=== PATIENT | male | born 1945 | race Caucasian/White ===

== ENCOUNTER → 2017-12-03 07:44 | Outpatient (REF) | payer MEDICARE, MEDICAID, SELFPAY ==
[2017-11-12 03:43] VITALS: BMI 34.4
[2017-12-03 08:29] LABS: Add Manual Diff / Slide Review NO; Basophils Percent Auto 0.4 % (0-2); Hematocrit 38.8 % (41-53); Lymphocytes Percent Auto 16.2 % (25-40); Mean Corpuscular HGB Conc 33.4 % (30-36); Mean Corpuscular Hemoglobin 29.3 PG (26-34); Mean Corpuscular Volume 87.6 fL (80-100); Monocytes Percent Auto 8.3 % (3-14); Neutrophils Absolute Auto 9100 /uL (3000-5900); Neutrophils Percent Auto 74.1 % (50-75); Platelet Count 236 X10^3/uL (150-400); Red Blood Cell Count 4.42 X10^6/uL (4.5-5.9); Red Cell Distribution Width 17.4 % (11.6-14.8); White Blood Cell Count 12.2 X10^3/uL (4.5-11.0)
[2017-12-03 08:40] LABS: BUN Creatinine Ratio 12.5 (6-22); Calcium 8.6 mg/dL (8.4-10.2); Estimated Glomerular Filt Rate > 60.0 mL/min (>60); Glucose 80 mg/dL (80-110); HEMOLYSIS < 15 (0-50); Potassium 3.6 mmol/L (3.4-5.1); Sodium 137 mmol/L (137-145)
[2017-12-03 11:25] LABS: Clostridium Difficile Tox PCR POSITIVE for C. diff
== END ==
LOC: LAB 07:44
PROVIDERS: PCP Internal Medicine; Visit Provider Internal Medicine
DX: R19.7 Diarrhea, unspecified (principal); R50.9 Fever, unspecified
CPT/HCPCS: 36415; 80048; 85025; 87493

== ENCOUNTER → 2017-12-05 14:23 | Outpatient (REF) | payer MEDICARE, MEDICAID, SELFPAY ==
[2017-11-12 03:43] VITALS: BMI 34.4
[2017-12-05 14:32] LABS: Add Manual Diff / Slide Review NO; Basophils Percent Auto 0.9 % (0-2); Eosinophils Percent Auto 1.9 % (2-4); Hematocrit 38.3 % (41-53); Hemoglobin 13.2 g/dL (13.5-17.5); Lymphocytes Percent Auto 20.7 % (25-40); Mean Corpuscular HGB Conc 34.5 % (30-36); Mean Corpuscular Hemoglobin 29.9 PG (26-34); Mean Corpuscular Volume 86.5 fL (80-100); Monocytes Percent Auto 5.1 % (3-14); Neutrophils Absolute Auto 5900 /uL (3000-5900); Neutrophils Percent Auto 71.4 % (50-75); Platelet Count 237 X10^3/uL (150-400); Red Blood Cell Count 4.42 X10^6/uL (4.5-5.9); Red Cell Distribution Width 16.7 % (11.6-14.8); White Blood Cell Count 8.3 X10^3/uL (4.5-11.0)
== END ==
LOC: LAB 14:23
PROVIDERS: PCP Internal Medicine; Visit Provider Internal Medicine
DX: R50.9 Fever, unspecified (principal)
CPT/HCPCS: 85025

== ENCOUNTER → 2017-12-19 17:13 | Outpatient (REF) | payer MEDICARE, SELFPAY ==
[2017-11-12 03:43] VITALS: BMI 34.4
[2017-12-19 17:19] LABS: Add Manual Diff / Slide Review NO; Basophils Percent Auto 0.8 % (0-2); Eosinophils Percent Auto 2.3 % (2-4); Hematocrit 32.2 % (41-53); Hemoglobin 10.7 g/dL (13.5-17.5); Lymphocytes Percent Auto 28.3 % (25-40); Mean Corpuscular HGB Conc 33.2 % (30-36); Mean Corpuscular Hemoglobin 29.6 PG (26-34); Monocytes Percent Auto 9.2 % (3-14); Neutrophils Absolute Auto 4600 /uL (3000-5900); Neutrophils Percent Auto 59.4 % (50-75); Platelet Count 287 X10^3/uL (150-400); Red Blood Cell Count 3.62 X10^6/uL (4.5-5.9); Red Cell Distribution Width 17.4 % (11.6-14.8); White Blood Cell Count 7.7 X10^3/uL (4.5-11.0)
[2017-12-19 17:33] LABS: Alanine Aminotransferase 27 IU/L (21-72); Albumin 2.7 g/dL (3.5-5.0); Albumin Globulin Ratio 0.9 (1.0-2.8); Alkaline Phosphatase 75 U/L (38-126); Aspartate Aminotransferase 25 IU/L (17-59); BUN Creatinine Ratio 11.4 (6-22); Bilirubin Total 0.5 mg/dL (0.2-1.3); Blood Urea Nitrogen 8 mg/dL (9-20); Calcium 8.4 mg/dL (8.4-10.2); Carbon Dioxide 31 mmol/L (22-32); Chloride 99 mmol/L (98-107); Estimated Glomerular Filt Rate > 60.0 mL/min (>60); Globulin 2.9 g/dL (1.7-4.1); Glucose 85 mg/dL (80-110); HEMOLYSIS 15 (0-50); Potassium 3.5 mmol/L (3.4-5.1); Sodium 136 mmol/L (137-145); Total Protein 5.6 g/dL (6.3-8.2)
== END ==
LOC: LAB 17:13
PROVIDERS: PCP Internal Medicine; Visit Provider Internal Medicine
DX: D64.9 Anemia, unspecified (principal)
CPT/HCPCS: 80053; 85025

== ENCOUNTER → 2017-12-20 07:51 | Outpatient (REF) | payer SELFPAY ==
[2017-11-12 03:43] VITALS: BMI 34.4
[2017-12-20 08:24] LABS: Add Manual Diff / Slide Review NO; Basophils Percent Auto 0.7 % (0-2); Eosinophils Percent Auto 3.1 % (2-4); Hematocrit 31.1 % (41-53); Hemoglobin 10.4 g/dL (13.5-17.5); Lymphocytes Percent Auto 33.7 % (25-40); Mean Corpuscular HGB Conc 33.5 % (30-36); Mean Corpuscular Hemoglobin 29.7 PG (26-34); Mean Corpuscular Volume 88.6 fL (80-100); Monocytes Percent Auto 8.3 % (3-14); Neutrophils Absolute Auto 3300 /uL (3000-5900); Neutrophils Percent Auto 54.2 % (50-75); Platelet Count 282 X10^3/uL (150-400); Red Blood Cell Count 3.51 X10^6/uL (4.5-5.9); White Blood Cell Count 6.1 X10^3/uL (4.5-11.0)
[2017-12-20 08:34] LABS: BUN Creatinine Ratio 11.4 (6-22); Blood Urea Nitrogen 8 mg/dL (9-20); Calcium 8.6 mg/dL (8.4-10.2); Carbon Dioxide 35 mmol/L (22-32); Chloride 99 mmol/L (98-107); Estimated Glomerular Filt Rate > 60.0 mL/min (>60); Glucose 89 mg/dL (80-110); HEMOLYSIS < 15 (0-50); Potassium 3.7 mmol/L (3.4-5.1); Sodium 139 mmol/L (137-145)
[2017-12-20 08:42] LABS: Digoxin 1.7 ng/mL (0.8-2.0)
== END ==
LOC: LAB 07:51
PROVIDERS: PCP Internal Medicine; Visit Provider Internal Medicine
DX: S37.009A Unspecified injury of unspecified kidney, initial encounter (principal); D64.9 Anemia, unspecified
CPT/HCPCS: 36415; 80048; 80162; 85025; 93971

== ENCOUNTER → 2017-12-20 15:08 | Outpatient (CLI) | payer SELFPAY ==
[2017-11-12 03:43] VITALS: BMI 34.4
--- NOTE | 2017-12-20 | DI.US.S_ITS ---
PROCEDURE: US PERIPH VENOUS LOW EXTREM RT INDICATIONS: Right lower extremity numbness TECHNIQUE: Real-time imaging, as well as color and pulse Doppler interrogation, were performed of the lower extremity deep veins from the inguinal ligament to the popliteal fossa. COMPARISON: None. FINDINGS: The deep veins are normally compressible, and free of intraluminal thrombus. Color and pulse Doppler demonstrate normal phasic intraluminal flow. There is normal augmentation response to distal compression maneuver. IMPRESSION: No deep venous thrombosis identified within the right lower extremity. Dictated by: Victoriano Presley [facility] Interpreted: Kal Rae MD on 12/20/2017 at 16:00 Approved by: Kal Rae M.D. on 12/20/2017 at 16:48
== END ==
PROVIDERS: PCP Internal Medicine; Visit Provider Internal Medicine
DX: R20.0 Anesthesia of skin (principal)
CPT/HCPCS: 36415; 80048; 80162; 85025; 93971

== ENCOUNTER → 2017-12-22 07:50 | Outpatient (REF) | payer SELFPAY ==
[2017-11-12 03:43] VITALS: BMI 34.4
[2017-12-22 09:02] LABS: Thyroid Stimulating Hormone 7.06 uIU/mL (0.47-4.68)
[2017-12-22 15:41] LABS: Free T3, Triiodothyronine Free 3.02 pg/mL (2.77-5.27); Free T4, Direct Thyroxine 1.89 ng/dL (0.78-2.19)
== END ==
LOC: LAB 07:50
PROVIDERS: PCP Internal Medicine; Visit Provider Internal Medicine
DX: R41.0 Disorientation, unspecified (principal); Z79.899 Other long term (current) drug therapy; R94.6 Abnormal results of thyroid function studies
CPT/HCPCS: 36415; 84439; 84443; 84481

== ENCOUNTER → 2017-12-25 16:05 | Outpatient (REF) | payer MEDICARE, SELFPAY ==
[2017-11-12 03:43] VITALS: BMI 34.4
[2017-12-25 16:16] LABS: Color Urine UA RED
[2017-12-25 16:17] LABS: Appearance Urine UA OTHER
[2017-12-25 16:18] LABS: WBC Urine 5-10/HPF (0-5/HPF)
[2017-12-25 16:19] LABS: Amorphous Sediment Urine 1+; RBC Urine >100/HPF (0-5/HPF)
[2017-12-25 16:20] LABS: Bacteria Urine Moderate (10-30); Culture Indicated Urine Specimen Cultured
== END ==
LOC: LAB 16:05
PROVIDERS: PCP Internal Medicine; Visit Provider Internal Medicine
DX: R31.9 Hematuria, unspecified (principal); R68.83 Chills (without fever)
CPT/HCPCS: 81001; 87077; 87086; 87186

== ENCOUNTER → 2017-12-27 08:53 | Outpatient (REF) | payer MEDICARE, SELFPAY ==
[2017-11-12 03:43] VITALS: BMI 34.4
== END ==
LOC: LAB 08:53
PROVIDERS: PCP Internal Medicine; Visit Provider Internal Medicine
DX: I48.91 Unspecified atrial fibrillation (principal)
CPT/HCPCS: 36415; 80162

== ENCOUNTER → 2018-01-28 07:45 | Outpatient (REF) | payer MEDICARE, SELFPAY ==
[2017-11-12 03:43] VITALS: BMI 34.4
[2018-01-28 09:13] LABS: Chloride 103 mmol/L (98-107); HEMOLYSIS < 15 (0-50)
[2018-01-28 09:15] LABS: BUN Creatinine Ratio 14.3 (6-22); Blood Urea Nitrogen 10 mg/dL (9-20); Carbon Dioxide 35 mmol/L (22-32); Estimated Glomerular Filt Rate > 60.0 mL/min (>60); Glucose 73 mg/dL (80-110); Potassium 2.9 mmol/L (3.4-5.1); Sodium 140 mmol/L (137-145)
[2018-01-28 10:06] LABS: Digoxin 0.7 ng/mL (0.8-2.0)
== END ==
LOC: LAB 07:45
PROVIDERS: PCP Internal Medicine; Visit Provider Internal Medicine
DX: Z92.29 Personal history of other drug therapy (principal); D64.9 Anemia, unspecified; I50.9 Heart failure, unspecified
CPT/HCPCS: 36415; 80048; 80162

== ENCOUNTER → 2018-01-31 07:55 | Outpatient (REF) | payer MEDICARE, SELFPAY ==
[2017-11-12 03:43] VITALS: BMI 34.4
[2018-01-31 09:11] LABS: Digoxin 0.7 ng/mL (0.8-2.0)
== END ==
LOC: LAB 07:55
PROVIDERS: PCP Internal Medicine; Visit Provider Internal Medicine
DX: T46.0X5A Adverse effect of cardiac-stimulant glycosides and drugs of similar action, initial encounter (principal)
CPT/HCPCS: 36415; 80162

== ENCOUNTER → 2018-02-02 08:23 | Outpatient (REF) | payer MEDICARE, SELFPAY ==
[2017-11-12 03:43] VITALS: BMI 34.4
[2018-02-02 10:33] LABS: BUN Creatinine Ratio 17.1 (6-22); Blood Urea Nitrogen 12 mg/dL (9-20); Calcium 8.1 mg/dL (8.4-10.2); Carbon Dioxide 34 mmol/L (22-32); Chloride 101 mmol/L (98-107); Estimated Glomerular Filt Rate > 60.0 mL/min (>60); Glucose 67 mg/dL (80-110); HEMOLYSIS < 15 (0-50); Potassium 3.3 mmol/L (3.4-5.1); Sodium 139 mmol/L (137-145)
[2018-02-02 10:34] LABS: Digoxin 0.9 ng/mL (0.8-2.0)
== END ==
LOC: LAB 08:23
PROVIDERS: PCP Internal Medicine; Visit Provider Internal Medicine
DX: I10 Essential (primary) hypertension (principal)
CPT/HCPCS: 36415; 80048; 80162

== ENCOUNTER 2018-02-07 20:11 | Inpatient (IN) | payer MEDICARE, MEDICAID, SELFPAY ==
[2017-11-12 03:43] VITALS: BMI 34.4
[2018-02-07] VITALS (8 sets, daily range): BP systolic 90–170; BP diastolic 45–144; PULSE 91–139; RESP 18–30; TEMP 36.4–39.1; O2SAT 91–100; BMI 32.8
--- NOTE | 2018-02-07 20:19 | ED.ABDPAIN ---
HPI - Abdominal Pain General Chief Complaint: Abdominal Pain Stated Complaint: ABD Pain Time Seen by Provider: 02/07/18 20:17 Source: patient and family Mode of arrival: EMS Limitations: no limitations History of Present Illness HPI narrative: Patient is a 72-year-old male presenting with shaking and abdominal pain. He says he can't get cold. He has extremely poor historian is having some epigastric pain. No vomiting or diarrhea. According to his daughter in law he has had multiple hospitalizations over the last 6 months or so. It started with a septic right knee at which time he also experienced a non ST elevated NV. He later had 3 stents placed at the [facility] and transferred to [facility] rehab. He was admitted in November 2017 at this hospital with C diff colitis. He denies any chest pain or shortness of breath. He is visibly shaking and appears cold. Related Data Home Medications Medication Instructions Recorded Confirmed acetaminophen 650 mg PO Q4H PRN 11/12/17 11/12/17 albuterol sulfate 2 ml INHALATION Q4H PRN 11/12/17 02/08/18 amiodarone 200 mg PO DAILY 11/12/17 02/08/18 atorvastatin 40 mg PO DAILY 11/12/17 11/12/17 bisacodyl 5 mg PO BEDTIME PRN 11/12/17 11/12/17 clopidogrel 75 mg PO DAILY 11/12/17 02/08/18 gabapentin 100 mg PO TID 11/12/17 11/12/17 mirtazapine 7.5 mg PO BEDTIME 11/12/17 11/12/17 pantoprazole 40 mg PO QAM 11/12/17 11/12/17 rivaroxaban [Xarelto] 15 mg PO QPM 11/12/17 02/08/18 salmeterol [Serevent Diskus] 1 inh INHALATION Q12H 11/12/17 11/12/17 Digox 0.125 mg PO DAILY 02/08/18 02/08/18 docusate sodium 100 mg PO BID 02/08/18 02/08/18 furosemide 60 mg PO DAILY 02/08/18 02/08/18 potassium chloride 10 meq PO BID 02/08/18 02/08/18 Previous Rx's Medication Instructions Recorded metoprolol tartrate 12.5 mg PO BID #60 tab 11/13/17 oxycodone-acetaminophen [Percocet] 1 tab PO Q4-6H PRN #30 tab 11/13/17 Allergies Allergy/AdvReac Type Severity Reaction Status Date / Time hydrochlorothiazide Allergy Unknown Verified 02/07/18 20:22 [HYDROCHLOROTHIAZIDE] pregabalin [From LYRICA] Allergy Unknown Verified 02/07/18 20:22 Pkoeofp-Xgn-Hok Reductase Allergy Unknown Verified 02/07/18 20:22 Inhibitor [[id number] REDUCTASE INHIBITOR] Sulfa (Sulfonamide Allergy Unknown Verified 02/07/18 20:22 Antibiotics) [SULFA (SULFONAMIDE ANTIBIOTICS)] Review of Systems Review of Systems All systems reviewed & are unremarkable except as noted in HPI and below Constitutional Reports body ache(s), Reports chills, Denies fatigue, Denies fever(s) and Denies headache(s) ENT Ears, Nose, Mouth, and Throat: Denies dizziness, Denies headache(s) and Denies neck pain Cardiovascular Denies chest pain, Denies diaphoresis, Reports syncope (previous history, supposed to get zero patch. No syncope recently), Denies pedal edema, Denies lightheadedness, Denies palpitations (tachycardic on monitor), Reports dyspnea and Denies dyspnea on exertion Respiratory Denies cough, Reports dyspnea and Denies dyspnea on exertion Gastrointestinal Gastrointestinal: Reports as per HPI, Denies abdominal pain, Denies diarrhea, Denies nausea and Denies vomiting Genitourinary Denies urinary frequency and Denies urinary incontinence Musculoskeletal Denies back pain, Denies arthralgias, Denies joint swelling, Denies neck pain and Denies numbness Integumentary/Breasts Denies pruritus, Denies erythema, Denies rash and Denies wounds Neurologic Reports confusion, Denies dizziness, Reports syncope (previous history, supposed to get zero patch. No syncope recently), Denies headache(s), Denies numbness and Denies restless legs Psychiatric Reports confusion Endocrine Denies fatigue and Denies palpitations (tachycardic on monitor) [facility] Medical History Anemia (Chronic) Anorexia (Chronic) Atherosclerosis (Chronic) Benign prostatic hyperplasia without lower urinary tract symptoms (Chronic) COPD (chronic obstructive pulmonary disease) (Chronic) Hypertensive heart disease with heart failure (Chronic) Major depressive disorder, single episode (Chronic) Morbid obesity due to excess calories (Chronic) Obstructive sleep apnea (Chronic) Orthostatic hypotension (Chronic) Osteoarthritis (Chronic) Paroxysmal atrial fibrillation (Chronic) Polyneuropathy, unspecified (Chronic) 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) Infection/inflammation due to internal orthopedic device/implant/graft (Resolved) Non-ST elevated myocardial infarction (non-STEMI) (Resolved) Streptococcus, group b, as the cause of diseases classified elsewhere (Resolved) Surgical History Presence of coronary angioplasty implant and graft (Chronic) Social History household members: none lives independently: No housing: senior care Exam Initial Vital Signs Initial Vital Signs: Vital Signs Temperature 97.5 F L 02/07/18 20:19 Pulse Rate 91 H 02/07/18 20:19 Respiratory Rate 18 02/07/18 20:19 Blood Pressure 106/65 02/07/18 20:19 Pulse Oximetry 100 02/07/18 20:19 Const General: cooperative Nutritional Appearance: obese Orientation: alert and awake HENMT Head: normal to inspection and normocephalic Eyes General: appearance normal, both eyes and all related structures Pupils: PERRL EOM: EOM intact bilaterally Neck Neck: normal visual inspection, full ROM and no meningeal signs Chest Chest: normal inspection of the chest Resp Effort & Inspection: normal respiratory effort, able to speak in complete sentences and no use of accessory muscles Auscultation: clear to auscultation bilaterally, no rales, no rhonchi and no wheezes Cardio Rate: tachycardic Rhythm: regular rhythm Heart Sounds: S1 normal and S2 normal GI Palpation: soft and tender (Mild tenderness in epigastric and umbilical region without guarding or rebound) General: No CVA tenderness Penis: normal penis Meatus: meatus normal Back/Spine/Pelvis Back: normal to inspection, No back tenderness and No erythema Cervical Spine: normal cervical lordosis Thoracic/Lumbar Spine: thoracic and lumbar spine normal to inspection Skin General: no rashes or lesions noted, No ecchymosis, No erythema and No mottling Neuro General: alert and awake Cranial Nerves: CN's II-XI intact bilaterally Speech: speech normal Extrem General: normal to inspection and No no pedal edema Right upper extremity: normal to inspection Left upper extremity: normal to inspection Right lower extremity: knee (Scar noted) Details: no swelling, no abrasions, no ecchymosis and no deformity Course Orders Ordered: ED Orders 02/07/18 20:20 CT abdomen pelvis w con Stat 02/07/18 20:21 EKG-12 Lead Stat 02/07/18 21:11 Complete Blood Count AUTO DIFF Stat Comprehensive Metabolic Panel Stat Lipase Stat Partial Thromboplastin Time Stat Prothrombin Time INR Stat Troponin & CK Cardiac Panel Stat 02/07/18 21:24 Lactate (Lactic Acid) Stat 02/07/18 22:36 XR chest 1V Stat 02/07/18 22:40 US periph venous low extrem bi Stat 02/07/18 23:06 Blood Culture Stat 02/08/18 01:27 Lactate 4HR (Lactic Acid Rflx) Stat 02/08/18 03:39 Consult to Physician Routine Acetaminophen (Tylenol) 650 mg PO Q6HR PRN PRN Reason: As Needed for Fever/Mild Pain Sodium Chloride (Normal Saline 0.9%) 1,000 mls @ 125 mls/hr IV CONT CLEMENTINA Ondansetron HCl (Zofran) 4 mg IV Q4HR PRN PRN Reason: Nausea And Vomiting Discontinued Medications Acetaminophen (Tylenol) 650 mg PO NOW ONE Stop: 02/07/18 22:58 Last Admin: 02/07/18 23:14 Dose: 650 mg Sodium Chloride (Normal Saline 0.9%) 1,000 mls @ 150 mls/hr IV CONT CLEMENTINA Last Infusion: 02/07/18 23:19 Dose: 0 mls/hr Infusion: 02/07/18 23:14 Dose: 1,000 mls/hr Admin: 02/07/18 20:46 Dose: 150 mls/hr Vancomycin HCl 1,500 mg/ (Sodium Chloride) 500 mls @ 333.333 mls/hr IV NOW ONE Stop: 02/07/18 23:48 Last Infusion: 02/08/18 02:56 Dose: 0 mls/hr Admin: 02/08/18 00:51 Dose: 333.333 mls/hr Piperacillin/Tazobactam/Dextrose (Zosyn) 3.375 gm in 50 mls @ 100 mls/hr IV NOW ONE Stop: 02/08/18 00:16 Last Infusion: 02/08/18 00:41 Dose: 0 mls/hr Admin: 02/08/18 00:07 Dose: 100 mls/hr Sodium Chloride (Normal Saline 0.9%) 1,000 mls @ 1,000 mls/hr IV BOLUS ONE Stop: 02/08/18 01:03 Last Infusion: 02/08/18 03:26 Dose: 0 mls/hr Admin: 02/08/18 00:07 Dose: 1,000 mls/hr Sodium Chloride (Normal Saline 0.9%) 1,000 mls @ 1,000 mls/hr IV BOLUS ONE Stop: 02/08/18 01:20 Last Infusion: 02/08/18 03:26 Dose: 0 mls/hr Admin: 02/08/18 01:35 Dose: 1,000 mls/hr Ketorolac Tromethamine (Toradol) 15 mg IV NOW ONE Stop: 02/08/18 01:54 Last Admin: 02/08/18 01:59 Dose: 15 mg Morphine Sulfate (Morphine) 2 mg IV NOW ONE Stop: 02/07/18 20:46 Last Admin: 02/07/18 20:46 Dose: 2 mg Ondansetron HCl (Zofran) 4 mg IV NOW ONE Stop: 02/07/18 20:25 Last Admin: 02/07/18 20:46 Dose: 4 mg Pantoprazole Sodium (Protonix) 40 mg IV NOW ONE Stop: 02/07/18 20:25 Last Admin: 02/07/18 20:46 Dose: 40 mg Vital Signs - 8 hr 02/07/18 20:19 02/07/18 20:58 02/07/18 21:23 Temperature 97.5 F L Pulse Rate 91 H 114 H 118 H Respiratory Rate 18 23 25 H Blood Pressure 106/65 Blood Pressure [Left Arm] 113/85 H 126/85 H Pulse Oximetry 100 96 96 02/07/18 22:46 02/07/18 22:51 02/07/18 23:14 Temperature 102.4 F H 102.4 F H Pulse Rate 139 H 131 H Respiratory Rate 21 30 H Blood Pressure Blood Pressure [Left Arm] 147/60 H 170/144 H Pulse Oximetry 96 91 02/07/18 23:27 02/07/18 23:45 02/08/18 00:12 Temperature 100.2 F H Pulse Rate 126 H 125 H Respiratory Rate 28 H 25 H Blood Pressure Blood Pressure [Left Arm] 107/45 L 90/52 L Pulse Oximetry 96 94 02/08/18 00:16 02/08/18 01:38 02/08/18 01:59 Temperature 100.2 F H 101.8 F H 101.8 F H Pulse Rate 105 H Respiratory Rate 24 Blood Pressure Blood Pressure [Left Arm] 81/46 L Pulse Oximetry 93 02/08/18 02:01 02/08/18 02:22 02/08/18 02:58 Temperature 99.1 F Pulse Rate 104 H 106 H 101 H Respiratory Rate 25 H 22 20 Blood Pressure Blood Pressure [Left Arm] 86/50 L 100/53 L 96/64 Pulse Oximetry 93 96 98 02/08/18 03:26 Temperature 99.1 F Pulse Rate Respiratory Rate Blood Pressure Blood Pressure [Left Arm] Pulse Oximetry MDM - Abdominal Pain Medical Records Attestation: I reviewed the patient's medical records. Lab Data Attestation: I reviewed the patient's lab results. Result diagrams: 02/07/18 21:11 02/07/18 21:11 Lab Results 02/07/18 02/07/18 02/07/18 Range/Units 21:11 21:11 21:11 WBC 8.0 (4.5-11.0) X10^3/uL RBC 4.56 (4.5-5.9) X10^6/uL Hgb 13.6 (13.5-17.5) g/dL Hct 41.2 (41-53) % MCV 90.3 (80-100) fL MCH 29.8 (26-34) PG MCHC 33.0 (30-36) % RDW 15.6 H (11.6-14.8) % Plt Count 235 (150-400) X10^3/uL Neut % (Auto) 85.4 H (50-75) % Lymph % (Auto) 12.2 L (25-40) % [place] % (Auto) 1.4 L (3-14) % Eos % (Auto) 0.5 L (2-4) % Baso % (Auto) 0.5 (0-2) % Neut # (Auto) 6800 H (3498-1898) /uL PT 18.5 H (10.1-12.7) SECONDS INR 1.7 H (0.9-1.3) APTT 34 (26.4-36.2) SECONDS Sodium 142 (137-145) mmol/L Potassium 4.7 D (3.4-5.1) mmol/L Chloride 102 (98-107) mmol/L Carbon Dioxide 34 H (22-32) mmol/L BUN 15 (9-20) mg/dL Creatinine 1.00 (0.66-1.25) mg/dL Estimated GFR > 60.0 (>60) mL/min BUN/Creatinine Ratio 15.0 (6-22) Glucose 98 (80-110) mg/dL Lactate (0.7-2.1) mmol/L Calcium 9.0 (8.4-10.2) mg/dL Total Bilirubin 1.4 H (0.2-1.3) mg/dL AST 225 H (17-59) IU/L ALT 75 H (21-72) IU/L Alkaline Phosphatase 225 H (38-126) U/L Total Creatine Kinase 31 L (55-170) U/L CK-MB (CK-2) TNP Troponin I < 0.012 (0.01-0.034) ng/mL Total Protein 6.5 (6.3-8.2) g/dL Albumin 3.2 L (3.5-5.0) g/dL Globulin 3.3 (1.7-4.1) g/dL Albumin/Globulin Ratio 1.0 (1.0-2.8) Lipase 125 (23-300) U/L 02/07/18 02/08/18 Range/Units 21:24 01:27 WBC (4.5-11.0) X10^3/uL RBC (4.5-5.9) X10^6/uL Hgb (13.5-17.5) g/dL Hct (41-53) % MCV (80-100) fL MCH (26-34) PG MCHC (30-36) % RDW (11.6-14.8) % Plt Count (150-400) X10^3/uL Neut % (Auto) (50-75) % Lymph % (Auto) (25-40) % [place] % (Auto) (3-14) % Eos % (Auto) (2-4) % Baso % (Auto) (0-2) % Neut # (Auto) (7153-9161) /uL PT (10.1-12.7) SECONDS INR (0.9-1.3) APTT (26.4-36.2) SECONDS Sodium (137-145) mmol/L Potassium (3.4-5.1) mmol/L Chloride (98-107) mmol/L Carbon Dioxide (22-32) mmol/L BUN (9-20) mg/dL Creatinine (0.66-1.25) mg/dL Estimated GFR (>60) mL/min BUN/Creatinine Ratio (6-22) Glucose (80-110) mg/dL Lactate 2.9 H 1.9 (0.7-2.1) mmol/L Calcium (8.4-10.2) mg/dL Total Bilirubin (0.2-1.3) mg/dL AST (17-59) IU/L ALT (21-72) IU/L Alkaline Phosphatase (38-126) U/L Total Creatine Kinase (55-170) U/L CK-MB (CK-2) Troponin I (0.01-0.034) ng/mL Total Protein (6.3-8.2) g/dL Albumin (3.5-5.0) g/dL Globulin (1.7-4.1) g/dL Albumin/Globulin Ratio (1.0-2.8) Lipase (23-300) U/L Point of care testing: Urine Dip Bedside Urine Glucose Negative Bedside Urine Bilirubin - Negative Bedside Urine Ketone - Negative Urine Specific [place] 1.015 Bedside Urine Occult Blood - Negative Bedside Urine pH 7.5 Bedside Urine Protein - Negative Bedside Urine Urobilinogen +/- 1mg Bedside Urine Nitrite - Negative Bedside Urine Leukocytes - Negative Esterase Imaging Data CT scan - abdomen: Radiologist's impression: PROCEDURE: CT ABDOMEN PELVIS W CON INDICATIONS: abdominal pain TECHNIQUE: After the administration of intravenous contrast, 5 mm thick sections acquired from the diaphragm to the symphysis. 5 mm coronal and sagittal reformats were acquired. For radiation dose reduction, the following was used: automated exposure control, adjustment of mA and/or kV according to patient size. COMPARISON: [facility], CT, CT CHEST ABDOMEN PELVIS WITH CONTRAST, 10/06/2017, 14:38. FINDINGS: Image quality: Excellent. ABDOMEN: Lung bases: Lung bases are clear. Heart size is normal. Solid organs: Liver demonstrates multiple low attenuation foci, unchanged. Gallbladder is unremarkable. Biliary system is non dilated. Pancreas enhances normally. Spleen is normal in size and enhancement. No adrenal nodules. Kidneys demonstrate normal size and enhancement, without hydronephrosis. Bilateral low attenuation renal foci are unchanged. Retroaortic left renal vein is noted. Peritoneum and bowel: Bowel loops demonstrate normal wall thickness and caliber. No free fluid or air. Appendix is unremarkable. Minimal diverticula are present without inflammatory change. Nodes and vessels: No retroperitoneal or mesenteric adenopathy by size criteria. Aorta and inferior vena cava are normal in size. Miscellaneous: No ventral hernias. PELVIS: Genitourinary: Bladder wall thickness is normal. There is a small focus of soft tissue density within the posterior inferior bladder becoming contiguous with an enlarged prostate gland, unchanged. Miscellaneous: No inguinal hernias or adenopathy. Bones: No suspicious bony lesions. No vertebral body compression fractures. IMPRESSION: 1. No acute intra-abdominal or pelvic process. 2. Hepatic and renal cysts. 3. Diverticulosis. Dictated by: Xochitl Moore M.D. on 02/07/2018 at 22:09 Approved by: Xochitl Moore M.D. on 02/07/2018 at 22:14 Venous US: Radiologist's impression: Bilateral venous Dopplers negative for DVT ECG Data Attestation: I personally reviewed and interpreted this ECG as follows: Prior ECG tracings: not available for review Interpretation: Sinus tachycardia heart rate 124 Q-wave noted in lead [address] [facility] Narrative Medical decision making narrative: The patient had initially with normal vitals all but began getting tachycardic and eventually fever was present. Elevated lactic acid at 2.9. Normal white count. No identification of the infection. Chest x-ray negative abdominal CT negative urine is negative. Full skin assessment does not show any bed sores or erythema. Bilateral Dopplers used to rule out any DVT. Patient is never hypoxic or visibly short of breath. I do not believe that he has a PE. His heart rate actually improved significantly with IV fluids and fever control. His mental status also improved. He is does not show any signs of congestive heart failure. Griffin catheter placed for monitoring fluid balance. Repeat lactic acid shows improvement however patient's blood pressure is labile is but he clinically has improved significantly. He is much more awake and alert. Heart rate is down to the low 100s. He overall seems better and is tolerating IV fluids. His at this time will continue with IV fluids I do not think vasopressors needed at this time. Dr. Vieira updated on patient's symptoms and test results. His agrees with ICU admission. Discharge Plan Departure Admit Date/Time: 02/08/18 02:03 Admit Provider: Freddy Vieira
--- NOTE | 2018-02-07 20:32 | PC.NURSE ---
lakeshia crook and this nurse witnessed pt say xochilt roth can be told anything about his medical. she manages his medical stuff
[2018-02-07] MEDS: SODIUM CHLORIDE 0.9% 1,000 ML 150 ML IV (20:46)
[2018-02-07] MEDS: MORPHINE 2 MG/ML INJ IV (20:46)
[2018-02-07] MEDS: PANTOPRAZOLE 40 MG VIAL IV (20:46)
[2018-02-07] MEDS: ONDANSETRON 4 MG/2 ML INJ IV (20:46)
--- NOTE | 2018-02-07 20:57 | PC.NURSE ---
pt reports abdominal pain starting at 5pm. tremmors started immediatley after pain started. pt had a sandwich for dinner then pain started.
[2018-02-07 21:33] LABS: Add Manual Diff / Slide Review NO; Basophils Percent Auto 0.5 % (0-2); Eosinophils Percent Auto 0.5 % (2-4); Hematocrit 41.2 % (41-53); Hemoglobin 13.6 g/dL (13.5-17.5); Lymphocytes Percent Auto 12.2 % (25-40); Mean Corpuscular Hemoglobin 29.8 PG (26-34); Mean Corpuscular Volume 90.3 fL (80-100); Monocytes Percent Auto 1.4 % (3-14); Neutrophils Absolute Auto 6800 /uL (3000-5900); Neutrophils Percent Auto 85.4 % (50-75); Platelet Count 235 X10^3/uL (150-400); Red Blood Cell Count 4.56 X10^6/uL (4.5-5.9); Red Cell Distribution Width 15.6 % (11.6-14.8)
[2018-02-07 21:38] LABS: INR 1.7 (0.9-1.3); Prothrombin Time 18.5 SECONDS (10.1-12.7)
[2018-02-07 21:41] LABS: PTT Partial Thromboplastin Tim 34 SECONDS (26.4-36.2)
[2018-02-07 21:43] LABS: Alanine Aminotransferase 75 IU/L (21-72); Albumin 3.2 g/dL (3.5-5.0); Alkaline Phosphatase 225 U/L (38-126); Aspartate Aminotransferase 225 IU/L (17-59); Bilirubin Total 1.4 mg/dL (0.2-1.3); Blood Urea Nitrogen 15 mg/dL (9-20); Carbon Dioxide 34 mmol/L (22-32); Chloride 102 mmol/L (98-107); Creatine Kinase 31 U/L (55-170); Estimated Glomerular Filt Rate > 60.0 mL/min (>60); Globulin 3.3 g/dL (1.7-4.1); Glucose 98 mg/dL (80-110); HEMOLYSIS < 15 (0-50); Lipase 125 U/L (23-300); Potassium 4.7 mmol/L (3.4-5.1); Sodium 142 mmol/L (137-145); Total Protein 6.5 g/dL (6.3-8.2)
[2018-02-07 21:57] LABS: Troponin I < 0.012 ng/mL (0.01-0.034)
--- NOTE | 2018-02-07 22:32 | ED_ITS ---
HPI - Abdominal Pain General Chief Complaint: Abdominal Pain Stated Complaint: ABD Pain Time Seen by Provider: 02/07/18 20:17 Source: patient and family Mode of arrival: EMS Limitations: no limitations History of Present Illness HPI narrative: Patient is a 72-year-old male presenting with shaking and abdominal pain. He says he can't get cold. He has extremely poor historian is having some epigastric pain. No vomiting or diarrhea. According to his daughter in law he has had multiple hospitalizations over the last 6 months or so. It started with a septic right knee at which time he also experienced a non ST elevated [place]. He later had [address] [facility] and transferred to [facility] rehab. He was admitted in November 2017 at this hospital with C diff colitis. He denies any chest pain or shortness of breath. He is visibly shaking and appears cold. Related Data Home Medications Medication Instructions Recorded Confirmed acetaminophen 650 mg PO Q4H PRN 11/12/17 11/12/17 albuterol sulfate 2 ml INHALATION Q4H PRN 11/12/17 02/08/18 amiodarone 200 mg PO DAILY 11/12/17 02/08/18 atorvastatin 40 mg PO DAILY 11/12/17 11/12/17 bisacodyl 5 mg PO BEDTIME PRN 11/12/17 11/12/17 clopidogrel 75 mg PO DAILY 11/12/17 02/08/18 gabapentin 100 mg PO TID 11/12/17 11/12/17 mirtazapine 7.5 mg PO BEDTIME 11/12/17 11/12/17 pantoprazole 40 mg PO QAM 11/12/17 11/12/17 rivaroxaban [Xarelto] 15 mg PO QPM 11/12/17 02/08/18 salmeterol [Serevent Diskus] 1 inh INHALATION Q12H 11/12/17 11/12/17 Digox 0.125 mg PO DAILY 02/08/18 02/08/18 docusate sodium 100 mg PO BID 02/08/18 02/08/18 furosemide 60 mg PO DAILY 02/08/18 02/08/18 potassium chloride 10 meq PO BID 02/08/18 02/08/18 Previous Rx's Medication Instructions Recorded metoprolol tartrate 12.5 mg PO BID #60 tab 11/13/17 oxycodone-acetaminophen [Percocet] 1 tab PO Q4-6H PRN #30 tab 11/13/17 Allergies Allergy/AdvReac Type Severity Reaction Status Date / Time hydrochlorothiazide Allergy Unknown Verified 02/07/18 20:22 [HYDROCHLOROTHIAZIDE] pregabalin [From LYRICA] Allergy Unknown Verified 02/07/18 20:22 Lockprt-Jex-Sez Reductase Allergy Unknown Verified 02/07/18 20:22 Inhibitor [[id number] REDUCTASE INHIBITOR] Sulfa (Sulfonamide Allergy Unknown Verified 02/07/18 20:22 Antibiotics) [SULFA (SULFONAMIDE ANTIBIOTICS)] Review of Systems Review of Systems All systems reviewed & are unremarkable except as noted in HPI and below Constitutional Reports body ache(s), Reports chills, Denies fatigue, Denies fever(s) and Denies headache(s) ENT Ears, Nose, Mouth, and Throat: Denies dizziness, Denies headache(s) and Denies neck pain Cardiovascular Denies chest pain, Denies diaphoresis, Reports syncope (previous history, supposed to get zero patch. No syncope recently), Denies pedal edema, Denies lightheadedness, Denies palpitations (tachycardic on monitor), Reports dyspnea and Denies dyspnea on exertion Respiratory Denies cough, Reports dyspnea and Denies dyspnea on exertion Gastrointestinal Gastrointestinal: Reports as per HPI, Denies abdominal pain, Denies diarrhea, Denies nausea and Denies vomiting Genitourinary Denies urinary frequency and Denies urinary incontinence Musculoskeletal Denies back pain, Denies arthralgias, Denies joint swelling, Denies neck pain and Denies numbness Integumentary/Breasts Denies pruritus, Denies erythema, Denies rash and Denies wounds Neurologic Reports confusion, Denies dizziness, Reports syncope (previous history, supposed to get zero patch. No syncope recently), Denies headache(s), Denies numbness and Denies restless legs Psychiatric Reports confusion Endocrine Denies fatigue and Denies palpitations (tachycardic on monitor) [facility] Medical History Anemia (Chronic) Anorexia (Chronic) Atherosclerosis (Chronic) Benign prostatic hyperplasia without lower urinary tract symptoms (Chronic) COPD (chronic obstructive pulmonary disease) (Chronic) Hypertensive heart disease with heart failure (Chronic) Major depressive disorder, single episode (Chronic) Morbid obesity due to excess calories (Chronic) Obstructive sleep apnea (Chronic) Orthostatic hypotension (Chronic) Osteoarthritis (Chronic) Paroxysmal atrial fibrillation (Chronic) Polyneuropathy, unspecified (Chronic) 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) Infection/inflammation due to internal orthopedic device/implant/graft (Resolved ) Non-ST elevated myocardial infarction (non-STEMI) (Resolved) Streptococcus, group b, as the cause of diseases classified elsewhere (Resolved) Surgical History Presence of coronary angioplasty implant and graft (Chronic) Social History household members: none lives independently: No housing: halfway Exam Initial Vital Signs Initial Vital Signs: Vital Signs Temperature 97.5 F L 02/07/18 20:19 Pulse Rate 91 H 02/07/18 20:19 Respiratory Rate 18 02/07/18 20:19 Blood Pressure 106/65 02/07/18 20:19 Pulse Oximetry 100 02/07/18 20:19 Const General: cooperative Nutritional Appearance: obese Orientation: alert and awake HENMT Head: normal to inspection and normocephalic Eyes General: appearance normal, both eyes and all related structures Pupils: PERRL EOM: EOM intact bilaterally Neck Neck: normal visual inspection, full ROM and no meningeal signs Chest Chest: normal inspection of the chest Resp Effort & Inspection: normal respiratory effort, able to speak in complete sentences and no use of accessory muscles Auscultation: clear to auscultation bilaterally, no rales, no rhonchi and no wheezes Cardio Rate: tachycardic Rhythm: regular rhythm Heart Sounds: S1 normal and S2 normal GI Palpation: soft and tender (Mild tenderness in epigastric and umbilical region without guarding or rebound) General: No CVA tenderness Penis: normal penis Meatus: meatus normal Back/Spine/Pelvis Back: normal to inspection, No back tenderness and No erythema Cervical Spine: normal cervical lordosis Thoracic/Lumbar Spine: thoracic and lumbar spine normal to inspection Skin General: no rashes or lesions noted, No ecchymosis, No erythema and No mottling Neuro General: alert and awake Cranial Nerves: CN's II-XI intact bilaterally Speech: speech normal Extrem General: normal to inspection and No no pedal edema Right upper extremity: normal to inspection Left upper extremity: normal to inspection Right lower extremity: knee (Scar noted) Details: no swelling, no abrasions, no ecchymosis and no deformity Course Orders Ordered: ED Orders 02/07/18 20:20 CT abdomen pelvis w con Stat 02/07/18 20:21 EKG-12 Lead Stat 02/07/18 21:11 Complete Blood Count AUTO DIFF Stat Comprehensive Metabolic Panel Stat Lipase Stat Partial Thromboplastin Time Stat Prothrombin Time INR Stat Troponin & CK Cardiac Panel Stat 02/07/18 21:24 Lactate (Lactic Acid) Stat 02/07/18 22:36 XR chest 1V Stat 02/07/18 22:40 US periph venous low extrem bi Stat 02/07/18 23:06 Blood Culture Stat 02/08/18 01:27 Lactate 4HR (Lactic Acid Rflx) Stat 02/08/18 03:39 Consult to Physician Routine Acetaminophen (Tylenol) 650 mg PO Q6HR PRN PRN Reason: As Needed for Fever/Mild Pain Sodium Chloride (Normal Saline 0.9%) 1,000 mls @ 125 mls/hr IV CONT CLEEMNTINA Ondansetron HCl (Zofran) 4 mg IV Q4HR PRN PRN Reason: Nausea And Vomiting Discontinued Medications Acetaminophen (Tylenol) 650 mg PO NOW ONE Stop: 02/07/18 22:58 Last Admin: 02/07/18 23:14 Dose: 650 mg Sodium Chloride (Normal Saline 0.9%) 1,000 mls @ 150 mls/hr IV CONT CLEMENTINA Last Infusion: 02/07/18 23:19 Dose: 0 mls/hr Infusion: 02/07/18 23:14 Dose: 1,000 mls/hr Admin: 02/07/18 20:46 Dose: 150 mls/hr Vancomycin HCl 1,500 mg/ (Sodium Chloride) 500 mls @ 333.333 mls/hr IV NOW ONE Stop: 02/07/18 23:48 Last Infusion: 02/08/18 02:56 Dose: 0 mls/hr Admin: 02/08/18 00:51 Dose: 333.333 mls/hr Piperacillin/Tazobactam/Dextrose (Zosyn) 3.375 gm in 50 mls @ 100 mls/hr IV NOW ONE Stop: 02/08/18 00:16 Last Infusion: 02/08/18 00:41 Dose: 0 mls/hr Admin: 02/08/18 00:07 Dose: 100 mls/hr Sodium Chloride (Normal Saline 0.9%) 1,000 mls @ 1,000 mls/hr IV BOLUS ONE Stop: 02/08/18 01:03 Last Infusion: 02/08/18 03:26 Dose: 0 mls/hr Admin: 02/08/18 00:07 Dose: 1,000 mls/hr Sodium Chloride (Normal Saline 0.9%) 1,000 mls @ 1,000 mls/hr IV BOLUS ONE Stop: 02/08/18 01:20 Last Infusion: 02/08/18 03:26 Dose: 0 mls/hr Admin: 02/08/18 01:35 Dose: 1,000 mls/hr Ketorolac Tromethamine (Toradol) 15 mg IV NOW ONE Stop: 02/08/18 01:54 Last Admin: 02/08/18 01:59 Dose: 15 mg Morphine Sulfate (Morphine) 2 mg IV NOW ONE Stop: 02/07/18 20:46 Last Admin: 02/07/18 20:46 Dose: 2 mg Ondansetron HCl (Zofran) 4 mg IV NOW ONE Stop: 02/07/18 20:25 Last Admin: 02/07/18 20:46 Dose: 4 mg Pantoprazole Sodium (Protonix) 40 mg IV NOW ONE Stop: 02/07/18 20:25 Last Admin: 02/07/18 20:46 Dose: 40 mg Vital Signs - 8 hr 02/07/18 20:19 02/07/18 20:58 02/07/18 21:23 Temperature 97.5 F L Pulse Rate 91 H 114 H 118 H Respiratory Rate 18 23 25 H Blood Pressure 106/65 Blood Pressure [Left Arm] 113/85 H 126/85 H Pulse Oximetry 100 96 96 02/07/18 22:46 02/07/18 22:51 02/07/18 23:14 Temperature 102.4 F H 102.4 F H Pulse Rate 139 H 131 H Respiratory Rate 21 30 H Blood Pressure Blood Pressure [Left Arm] 147/60 H 170/144 H Pulse Oximetry 96 91 02/07/18 23:27 02/07/18 23:45 02/08/18 00:12 Temperature 100.2 F H Pulse Rate 126 H 125 H Respiratory Rate 28 H 25 H Blood Pressure Blood Pressure [Left Arm] 107/45 L 90/52 L Pulse Oximetry 96 94 02/08/18 00:16 02/08/18 01:38 02/08/18 01:59 Temperature 100.2 F H 101.8 F H 101.8 F H Pulse Rate 105 H Respiratory Rate 24 Blood Pressure Blood Pressure [Left Arm] 81/46 L Pulse Oximetry 93 02/08/18 02:01 02/08/18 02:22 02/08/18 02:58 Temperature 99.1 F Pulse Rate 104 H 106 H 101 H Respiratory Rate 25 H 22 20 Blood Pressure Blood Pressure [Left Arm] 86/50 L 100/53 L 96/64 Pulse Oximetry 93 96 98 02/08/18 03:26 Temperature 99.1 F Pulse Rate Respiratory Rate Blood Pressure Blood Pressure [Left Arm] Pulse Oximetry MDM - Abdominal Pain Medical Records Attestation: I reviewed the patient's medical records. Lab Data Attestation: I reviewed the patient's lab results. Result diagrams: 02/07/18 21:11 02/07/18 21:11 Lab Results 02/07/18 02/07/18 02/07/18 Range/Units 21:11 21:11 21:11 WBC 8.0 (4.5-11.0) X10^3/uL RBC 4.56 (4.5-5.9) X10^6/uL Hgb 13.6 (13.5-17.5) g/dL Hct 41.2 (41-53) % MCV 90.3 (80-100) fL MCH 29.8 (26-34) PG MCHC 33.0 (30-36) % RDW 15.6 H (11.6-14.8) % Plt Count 235 (150-400) X10^3/uL Neut % (Auto) 85.4 H (50-75) % Lymph % (Auto) 12.2 L (25-40) % Lawrence % (Auto) 1.4 L (3-14) % Eos % (Auto) 0.5 L (2-4) % Baso % (Auto) 0.5 (0-2) % Neut # (Auto) 6800 H (9244-0859) /uL PT 18.5 H (10.1-12.7) SECONDS INR 1.7 H (0.9-1.3) APTT 34 (26.4-36.2) SECONDS Sodium 142 (137-145) mmol/L Potassium 4.7 D (3.4-5.1) mmol/L Chloride 102 (98-107) mmol/L Carbon Dioxide 34 H (22-32) mmol/L BUN 15 (9-20) mg/dL Creatinine 1.00 (0.66-1.25) mg/dL Estimated GFR > 60.0 (>60) mL/min BUN/Creatinine Ratio 15.0 (6-22) Glucose 98 (80-110) mg/dL Lactate (0.7-2.1) mmol/L Calcium 9.0 (8.4-10.2) mg/dL Total Bilirubin 1.4 H (0.2-1.3) mg/dL AST 225 H (17-59) IU/L ALT 75 H (21-72) IU/L Alkaline Phosphatase 225 H (38-126) U/L Total Creatine Kinase 31 L (55-170) U/L CK-MB (CK-2) TNP Troponin I < 0.012 (0.01-0.034) ng/mL Total Protein 6.5 (6.3-8.2) g/dL Albumin 3.2 L (3.5-5.0) g/dL Globulin 3.3 (1.7-4.1) g/dL Albumin/Globulin Ratio 1.0 (1.0-2.8) Lipase 125 (23-300) U/L 02/07/18 02/08/18 Range/Units 21:24 01:27 WBC (4.5-11.0) X10^3/uL RBC (4.5-5.9) X10^6/uL Hgb (13.5-17.5) g/dL Hct (41-53) % MCV (80-100) fL MCH (26-34) PG MCHC (30-36) % RDW (11.6-14.8) % Plt Count (150-400) X10^3/uL Neut % (Auto) (50-75) % Lymph % (Auto) (25-40) % Lawrence % (Auto) (3-14) % Eos % (Auto) (2-4) % Baso % (Auto) (0-2) % Neut # (Auto) (3330-2386) /uL PT (10.1-12.7) SECONDS INR (0.9-1.3) APTT (26.4-36.2) SECONDS Sodium (137-145) mmol/L Potassium (3.4-5.1) mmol/L Chloride (98-107) mmol/L Carbon Dioxide (22-32) mmol/L BUN (9-20) mg/dL Creatinine (0.66-1.25) mg/dL Estimated GFR (>60) mL/min BUN/Creatinine Ratio (6-22) Glucose (80-110) mg/dL Lactate 2.9 H 1.9 (0.7-2.1) mmol/L Calcium (8.4-10.2) mg/dL Total Bilirubin (0.2-1.3) mg/dL AST (17-59) IU/L ALT (21-72) IU/L Alkaline Phosphatase (38-126) U/L Total Creatine Kinase (55-170) U/L CK-MB (CK-2) Troponin I (0.01-0.034) ng/mL Total Protein (6.3-8.2) g/dL Albumin (3.5-5.0) g/dL Globulin (1.7-4.1) g/dL Albumin/Globulin Ratio (1.0-2.8) Lipase (23-300) U/L Point of care testing: Urine Dip Bedside Urine Glucose Negative Bedside Urine Bilirubin - Negative Bedside Urine Ketone - Negative Urine Specific [place] 1.015 Bedside Urine Occult Blood - Negative Bedside Urine pH 7.5 Bedside Urine Protein - Negative Bedside Urine Urobilinogen +/- 1mg Bedside Urine Nitrite - Negative Bedside Urine Leukocytes - Negative Esterase Imaging Data CT scan - abdomen: Radiologist's impression: PROCEDURE: CT ABDOMEN PELVIS W CON INDICATIONS: abdominal pain TECHNIQUE: After the administration of intravenous contrast, 5 mm thick sections acquired from the diaphragm to the symphysis. 5 mm coronal and sagittal reformats were acquired. For radiation dose reduction, the following was used: automated exposure control, adjustment of mA and/or kV according to patient size. COMPARISON: [facility], CT, CT CHEST ABDOMEN PELVIS WITH CONTRAST, 10/06/2017, 14:38. FINDINGS: Image quality: Excellent. ABDOMEN: Lung bases: Lung bases are clear. Heart size is normal. Solid organs: Liver demonstrates multiple low attenuation foci, unchanged. Gallbladder is unremarkable. Biliary system is non dilated. Pancreas enhances normally. Spleen is normal in size and enhancement. No adrenal nodules. Kidneys demonstrate normal size and enhancement, without hydronephrosis. Bilateral low attenuation renal foci are unchanged. Retroaortic left renal vein is noted. Peritoneum and bowel: Bowel loops demonstrate normal wall thickness and caliber. No free fluid or air. Appendix is unremarkable. Minimal diverticula are present without inflammatory change. Nodes and vessels: No retroperitoneal or mesenteric adenopathy by size criteria. Aorta and inferior vena cava are normal in size. Miscellaneous: No ventral hernias. PELVIS: Genitourinary: Bladder wall thickness is normal. There is a small focus of soft tissue density within the posterior inferior bladder becoming contiguous with an enlarged prostate gland, unchanged. Miscellaneous: No inguinal hernias or adenopathy. Bones: No suspicious bony lesions. No vertebral body compression fractures. IMPRESSION: 1. No acute intra-abdominal or pelvic process. 2. Hepatic and renal cysts. 3. Diverticulosis. Dictated by: Xochitl Moore M.D. on 02/07/2018 at 22:09 Approved by: Xochitl Moore M.D. on 02/07/2018 at 22:14 Venous US: Radiologist's impression: Bilateral venous Dopplers negative for DVT ECG Data Attestation: I personally reviewed and interpreted this ECG as follows: Prior ECG tracings: not available for review Interpretation: Sinus tachycardia heart rate 124 Q-wave noted in lead [address] changes[address] [facility] Narrative Medical decision making narrative: The patient had initially with normal vitals all but began getting tachycardic and eventually fever was present. Elevated lactic acid at 2.9. Normal white count. No identification of the infection. Chest x-ray negative abdominal CT negative urine is negative. Full skin assessment does not show any bed sores or erythema. Bilateral Dopplers used to rule out any DVT. Patient is never hypoxic or visibly short of breath. I do not believe that he has a PE. His heart rate actually improved significantly with IV fluids and fever control. His mental status also improved. He is does not show any signs of congestive heart failure. Griffin catheter placed for monitoring fluid balance. Repeat lactic acid shows improvement however patient's blood pressure is labile is but he clinically has improved significantly. He is much more awake and alert. Heart rate is down to the low 100s. He overall seems better and is tolerating IV fluids. His at this time will continue with IV fluids I do not think vasopressors needed at this time. Dr. Vieira updated on patient's symptoms and test results. His agrees with ICU admission. Discharge Plan Departure Admit Date/Time: 02/08/18 02:03 Admit Provider: Freddy Vieira
--- NOTE | 2018-02-07 22:36 | DI.RAD.S_ITS ---
PROCEDURE: XR CHEST 1V INDICATIONS: short of breath TECHNIQUE: One view of the chest was acquired. COMPARISON: [facility], CR, XR CHEST 1V, 11/11/2017, 23:40. [facility], CR, CHEST 1 VIEW, 11/03/2017, 10:20. [facility], CR, CHEST 2 VIEW, 10/07/2011, 12:38. FINDINGS: Surgical changes and devices: None. Lungs and pleura: No pleural effusions or pneumothorax. Lungs are clear. Mediastinum: Mediastinal contours appear normal. Heart size is normal. Bones and chest wall: No suspicious bony lesions. Overlying soft tissues appear unremarkable. IMPRESSION: Mildly reduced inspiratory volume, no acute disease. Dictated by: Kal Rae M.D. on 02/08/2018 at 8:15 Approved by: Kal Rae M.D. on 02/08/2018 at 8:15
--- NOTE | 2018-02-07 22:40 | DI.US.S_ITS ---
PROCEDURE: US PERIPH VENOUS LOW EXTREM BI INDICATIONS: short of breath TECHNIQUE: Real-time imaging, as well as color and pulse Doppler interrogation, were performed of the deep veins of both legs from the inguinal ligament to the popliteal fossa. COMPARISON: None. FINDINGS: The deep veins are normally compressible, and free of intraluminal thrombus. Color and pulse Doppler demonstrate normal phasic intravascular flow. There is normal augmentation response to distal compression maneuver. IMPRESSION: No deep venous thrombosis identified within either the left or right lower extremities. Dictated by: Victoriano Presley [facility] Interpreted: Tari Valdez MD on 02/08/2018 at 7:48 Approved by: Tari Valdez MD, PhD on 02/08/2018 at 9:52
[2018-02-07 23:12] LABS: Lactate (Lactic Acid) 2.9 mmol/L (0.7-2.1)
[2018-02-07] MEDS: ACETAMINOPHEN 325 MG TABLET 650 MG PO (23:14)
--- NOTE | 2018-02-07 23:15 | PC.NURSE ---
pt condition changed. hr increase to 130s, temp increased to 102.4. fluid bolus complete. lung prado clear. pt tremmors are resolved. pt is alert and oriented and answers questions appropriatley. pt is laying supine on stretcher calm. provider ordered labs, tylenol and ultrasound
--- NOTE | 2018-02-07 23:29 | PC.NURSE ---
bilat lower extremity US
--- NOTE | 2018-02-07 23:45 | PC.NURSE ---
provider notified of hypotension. order recieved for NS bolus.
[2018-02-08] VITALS (26 sets, daily range): BP systolic 58–122; BP diastolic 34–72; PULSE 75–106; RESP 9–25; TEMP 36.3–38.8; O2SAT 89–100; BMI 32.8
[2018-02-08] MEDS: PIPERACILLIN-TAZO 3.375 GM/50 ML FROZ.PIGGY IV ×3 (00:07→18:44)
[2018-02-08] MEDS: SODIUM CHLORIDE 0.9% 1,000 ML 1000 ML IV ×2 (00:07→01:35)
--- NOTE | 2018-02-08 00:13 | PC.NURSE ---
When asked How are you feeling pt stated Im feeling better. Just tired. Skin check performed with provider. some redness noted on buttocks. Surgical inscision on right knee is in tact and not draining. pt has a powder applied to folds of abdomen from pre hospital care. States they put that on me so I dont get itchy and burning
--- NOTE | 2018-02-08 00:20 | PC.NURSE ---
Pt sleeping, awakes easily to voice. pt RR is 25 with labored abdominal breathing. Provider notified and aknowledged.
[2018-02-08] MEDS: VANCOMYCIN 1,500 MG in SODIUM CHLORIDE 0.9% 500 ML 333.333 ML IV (00:51)
[2018-02-08] MEDS: KETOROLAC 60 MG/2 ML VIAL 15 MG IV (01:59)
[2018-02-08 03:03] LABS: Reflexed Lactate in 2 Hours Y
[2018-02-08 03:05] LABS: Lactate 2HR (Lactic Acid Rflx) 1.9 mmol/L (0.7-2.1)
[2018-02-08] MEDS: SODIUM CHLORIDE 0.9% 1,000 ML 125 ML IV ×3 (03:58→17:59)
[2018-02-08] MEDS: SODIUM CHLORIDE 0.9% 500 ML IV ×2 (06:13→07:41)
--- NOTE | 2018-02-08 06:24 | PC.ADMIT ---
[id number] Admission Note: Pt arrived to room 103 from the ER at 0350. Pt unable to transfer self to the bed, slider board used. Pt is alert and oriented, occasionally reports feeling a little fuzzy at times. Arrived on RA with sats 90-91%, placed on 1L O2 with sats 93-94%. Denies pain. BP as low as 70/30, MD aware and new order to give three 500ml boluses and start Dopamine drip if BP does not respond to the fluids. Pt denies feeling dizzy, denies chest pain and denies the abdominal pain that brought the pt to the ER. IVF infusing. Gaby has low urine output, with clear evon urine. Eating some snacks, encouraged PO fluids. Bed alarm on for safety. Call light within reach and pt oriented to room and the call light. [id number] called to get update on pt and gives RN Reva parameters to start Dopamine drip after the three NS boluses if the MAP is less than 65. The patient,Tonny Salas,72 y/o, was given written information regarding hospital policies, unit procedures and contact persons. Patient's smoking status: . Vital Signs - 8 hr 02/07/18 22:46 02/07/18 22:51 02/07/18 23:14 Temperature 102.4 F H 102.4 F H Pulse Rate 139 H 131 H Respiratory Rate 21 30 H Blood Pressure Blood Pressure [Left Arm] 147/60 H 170/144 H Pulse Oximetry 96 91 02/07/18 23:27 02/07/18 23:45 02/08/18 00:12 Temperature 100.2 F H Pulse Rate 126 H 125 H Respiratory Rate 28 H 25 H Blood Pressure Blood Pressure [Left Arm] 107/45 L 90/52 L Pulse Oximetry 96 94 02/08/18 00:16 02/08/18 01:38 02/08/18 01:59 Temperature 100.2 F H 101.8 F H 101.8 F H Pulse Rate 105 H Respiratory Rate 24 Blood Pressure Blood Pressure [Left Arm] 81/46 L Pulse Oximetry 93 02/08/18 02:01 02/08/18 02:22 02/08/18 02:58 Temperature 99.1 F Pulse Rate 104 H 106 H 101 H Respiratory Rate 25 H 22 20 Blood Pressure Blood Pressure [Left Arm] 86/50 L 100/53 L 96/64 Pulse Oximetry 93 96 98 02/08/18 03:26 02/08/18 03:50 Temperature 99.1 F 99.6 F Pulse Rate 100 H Respiratory Rate 19 Blood Pressure 81/49 L Blood Pressure [Left Arm] Pulse Oximetry 93
[2018-02-08] MEDS: DOPAMINE HCL IN DEXTROSE 5 % 400 MG/250 ML PLAST..BAG 19.986 MG IV (07:52)
[2018-02-08 09:50] LABS: Appearance Urine UA CLEAR; Bilirubin Urine UA 2+ (NEGATIVE); Color Urine UA ORANGE; Glucose Urine UA NEGATIVE (Normal); Ketones Urine UA TRACE (NEGATIVE); Leukocyte Esterase Urine UA NEGATIVE (NEGATIVE); Nitrite Urine UA Negative (Negative); Occult Blood Urine UA NEGATIVE (Negative); Protein Urine UA 1+ (Negative); Specific Gravity Urine UA <=1.005 (1.000-1.035)
[2018-02-08 10:07] LABS: Bacteria Urine Few (2-10); Culture Indicated Urine Cult Not Indicated; RBC Urine 0-1/HPF (0-5/HPF); Squamous Epithelial Cell Urine 0-1 /HPF; WBC Urine 1-5/HPF (0-5/HPF)
[2018-02-08 10:08] LABS: Ictotest Urine Positive (Negative)
[2018-02-08] MEDS: NOREPINEPHRINE 4 MG in DEXTROSE 5% IN WATER 250 ML 22.86 ML IV (10:09)
[2018-02-08 11:19] LABS: Acinetobacter baumannii Not Detected (Not Detect); Enterobacteriaceae species Detected (Not Detect); Enterococcus species Not Detected (Not Detect); KPC (carbapenem-resist gene) Not Detected (Not Detect); Listeria monocytogenes Not Detected (Not Detect); Methicillin-resistant gene Not Detected (Not Detect); Staphylococcus species Not Detected (Not Detect); Streptococcus agalactiae (Gr B Not Detected (Not Detect); Streptococcus pneumonia Not Detected (Not Detect); Streptococcus pyogenes (Gr A) Not Detected (Not Detect); Streptococcus species Not Detected (Not Detect); Vancomycin-rest genes A/B Not Detected (Not Detect)
[2018-02-08 11:20] LABS: Candida albicans Not Detected (Not Detect); Candida glabrata Not Detected (Not Detect); Candida krusei Not Detected (Not Detect); Candida parapsilosis Not Detected (Not Detect); Candida tropicalis Not Detected (Not Detect); E. coli Detected (Not Detect); Enterobacter cloacae complex Not Detected (Not Detect); Haemophilus influenzae Not Detected (Not Detect); Neisseria meningitidis Not Detected (Not Detect); Proteus species Not Detected (Not Detect); Pseudomonas aeruginosa Not Detected (Not Detect); Serratia marcescens Not Detected (Not Detect)
--- NOTE | 2018-02-08 11:31 | CM.DANOTE ---
Discharge Planning/Care Management DCP: assessment: case received, EMR reviewed and met with pt. Introduced self and role. Pt is a 72 year old resident of [facility] under care of medical staff services coordinator Dr. Green. Admitted to care of hospitalist team. Payer: Medicare and Medicaid. Hospitalist Dr. Justice states in interdisc team rounds that pt is being treated for septic shock and with infection probable in the urinary tract. P: likely return to [facility] when stable for same. will be following. CM Discharge Assessment Start: 02/08/18 11:27 Freq: Status: Active Protocol: Document 02/08/18 11:27 ITV (Rec: 02/08/18 11:31 ITV [id number]) Discharge Planning Assessment History Provided By Patient Medical Record Prior Living Arrangements Skilled Nurse Facility Household Members none Facility Name [facility] Willing to Return to Facility? Yes Comment pt is currently at [facility] under medicaid after having exhaused his Medicare snf benefits. [facility] will see if days can be restarted again per the snf /medicare regulations. Comment [facility] is holding bed for pt Discharge Plan Senior Care Facility If patient plan is SNF: Has PASSR been No: return to [facility]/no PASRR completed? will be needed Review Status In Process Next Review Type Continued Stay Review
--- NOTE | 2018-02-08 12:47 | P.HP_ITS ---
History of Present Illness Date Patient Seen: 02/08/18 Time Patient Seen: 10:44 Chief complaint: suprapubic abdominal pain, Narrative: Patient notes shaking chills and rigors associated with the abdominal discomfort. Patient was diagnosed and treated for C diff colitis November 2017. Patient was somewhat complicated history regarding his knee replacement. Patient originally had his right knee replaced February 2014. Patient had a septic joint the prosthesis was removed earlier this year. The prosthesis was replaced approximately 2-3 months ago after treatment of the septic joint region. 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) Infection/inflammation due to internal orthopedic device/implant/graft (Resolved ) Non-ST elevated myocardial infarction (non-STEMI) (Resolved) Streptococcus, group b, as the cause of diseases classified elsewhere (Resolved) Surgical History Presence of coronary angioplasty implant and graft (Chronic) Family & Social History Social History: household members none Prior Living Arrangements Skilled Nurse Facility lives independently No Safety & Behavioral: Feels Safe in Current Yes Environment Been Physically Hurt or No Threatened By a Person Suicidal Ideation Description None Suicide Plan Description No Plan Tobacco & Substance use: alcohol intake never Substance Use Type does not use Meds Home Medications Medication Instructions Recorded Confirmed Type acetaminophen 650 mg PO Q4H PRN 11/12/17 02/08/18 History albuterol sulfate 2 ml INHALATION Q4H PRN 11/12/17 02/08/18 History amiodarone 200 mg PO DAILY 11/12/17 02/08/18 History atorvastatin 40 mg PO DAILY 11/12/17 02/08/18 History bisacodyl 5 mg PO BEDTIME PRN 11/12/17 02/08/18 History clopidogrel 75 mg PO DAILY 11/12/17 02/08/18 History gabapentin 100 mg PO TID 11/12/17 02/08/18 History mirtazapine 7.5 mg PO BEDTIME 11/12/17 02/08/18 History pantoprazole 40 mg PO QAM 11/12/17 02/08/18 History rivaroxaban [Xarelto] 15 mg PO QPM 11/12/17 02/08/18 History salmeterol [Serevent Diskus] 1 inh INHALATION Q12H 11/12/17 02/08/18 History metoprolol tartrate 12.5 mg PO BID #60 tab 11/13/17 02/08/18 Rx Digox 0.125 mg PO DAILY 02/08/18 02/08/18 History docusate sodium 100 mg PO BID 02/08/18 02/08/18 History docusate sodium 100 mg PO BID 02/08/18 02/08/18 History furosemide 60 mg PO DAILY 02/08/18 02/08/18 History hydrocodone-acetaminophen 1 - 2 tab PO Q4H PRN 02/08/18 02/08/18 History potassium chloride 10 meq PO BID 02/08/18 02/08/18 History Allergies Allergy/AdvReac Type Severity Reaction Status Date / Time hydrochlorothiazide Allergy Unknown Verified 02/07/18 20:22 [HYDROCHLOROTHIAZIDE] pregabalin [From LYRICA] Allergy Unknown Verified 02/07/18 20:22 Jeofkrq-Pcr-Ntb Reductase Allergy Unknown Verified 02/07/18 20:22 Inhibitor [[id number] REDUCTASE INHIBITOR] Sulfa (Sulfonamide Allergy Unknown Verified 02/07/18 20:22 Antibiotics) [SULFA (SULFONAMIDE ANTIBIOTICS)] Review of Systems Review of Systems A 10 point review of system was obtained. Pertinent positives include the following patient with suprapubic pain which aching chills and nausea. No chest pain or shortness of breath. Exam Vital Signs (past 8 hours): - 02/08/18 05:00 02/08/18 06:56 02/08/18 07:21 Temperature 97.7 F Pulse Rate 90 83 82 Respiratory Rate 21 18 17 Blood Pressure 58/42 L 66/34 L 83/42 L Pulse Oximetry 94 92 93 02/08/18 08:10 02/08/18 08:44 02/08/18 09:13 Temperature 97.8 F 98.1 F Pulse Rate 89 92 H Respiratory Rate 18 20 Blood Pressure 94/53 L 91/61 Pulse Oximetry 96 94 93 02/08/18 10:20 02/08/18 11:00 02/08/18 12:00 Temperature 97.5 F L 98.0 F Pulse Rate 82 81 84 Respiratory Rate 12 20 Blood Pressure 77/42 L 88/51 L 122/59 H Pulse Oximetry 92 97 98 Oxygen Delivery Method Nasal Cannula Oxygen Flow Rate 3 Narrative Exam Narrative: Patient is noted as a relatively healthy appearing 72 years of age male. Good hygiene and body habitus noted on exam. Eyes Other: Pupils are equal round and reactive to light Neck Other: No JVD no bruits are noted Chest Other: A good normal expansion of the lung bilaterally is noted nontender. Resp Other: Clear to auscultation no wheezes no crackles fairly good airflow sounds Cardio Other: Regular in rate and rhythm. No murmurs are noted. GI Other: Positive bowel sounds are noted on exam. No distention. No bruits. Tenderness noted to palpation in the suprapubic region which appears to have repeat lessened considerably according to the patient more tenderness to the suprapubic region earlier today as noted by patient. Back/Spine/Pelvis Other: No costovertebral angle tenderness no tenderness to percussion of the spine Neuro Other: No focal neurologic changes cranial nerves 2-12 grossly intact Psych Other: Patient is noted awake and alert no apparent distress at the present time well-oriented Objective Labs Result Diagrams: 02/07/18 21:11 02/07/18 21:11 Labs: Laboratory Results - last 24 hr 02/07/18 02/07/18 02/07/18 21:11 21:11 21:11 WBC 8.0 RBC 4.56 Hgb 13.6 Hct 41.2 MCV 90.3 MCH 29.8 MCHC 33.0 RDW 15.6 H Plt Count 235 Neut % (Auto) 85.4 H Lymph % (Auto) 12.2 L [place] % (Auto) 1.4 L Eos % (Auto) 0.5 L Baso % (Auto) 0.5 Neut # (Auto) 6800 H PT 18.5 H INR 1.7 H APTT 34 Sodium 142 Potassium 4.7 D Chloride 102 Carbon Dioxide 34 H BUN 15 Creatinine 1.00 Estimated GFR > 60.0 BUN/Creatinine Ratio 15.0 Glucose 98 Lactate Calcium 9.0 Total Bilirubin 1.4 H AST 225 H ALT 75 H Alkaline Phosphatase 225 H Total Creatine Kinase 31 L CK-MB (CK-2) TNP Troponin I < 0.012 Total Protein 6.5 Albumin 3.2 L Globulin 3.3 Albumin/Globulin Ratio 1.0 Lipase 125 Urine Color Urine Appearance Urine pH Ur Specific [place] Urine Protein Urine Glucose (UA) Urine Ketones Urine Occult Blood Urine Nitrate Urine Bilirubin Urine Ictotest Urine Urobilinogen Ur Leukocyte Esterase Urine RBC Urine WBC Ur Squamous Epith Cells Urine Bacteria Ur Culture Indicated? Micro UA Comment Nasal Screen MRSA (PCR) A. baumannii (PCR) Kira albicans (PCR) C. glabrata (PCR) C. krusei (PCR) C. parapsilosis (PCR) C. tropicalis (PCR) Enterobacteriac sp PCR E. cloacae complex PCR Enterococcus sp PCR E. coli (PCR) H. influenzae (PCR) Klebsiella oxytoca PCR Klebsiella pneumoniae List. monocytogenes PCR N. meningitidis (PCR) Proteus species (PCR) Serratia marcescens PCR Staphylococcus sp PCR Staph aureus (PCR) mecA-Methicil Res Gene Streptococcus sp PCR Group A Strep (PCR) Strep agalactiae (PCR) Strep pneumoniae (PCR) P. aeruginosa (PCR) Jany/B-Vanco Res Genes KPC-Carbap Res Gene PCR 02/07/18 02/08/18 02/08/18 21:24 01:27 08:00 WBC RBC Hgb Hct MCV MCH MCHC RDW Plt Count Neut % (Auto) Lymph % (Auto) [place] % (Auto) Eos % (Auto) Baso % (Auto) Neut # (Auto) PT INR APTT Sodium Potassium Chloride Carbon Dioxide BUN Creatinine Estimated GFR BUN/Creatinine Ratio Glucose Lactate 2.9 H 1.9 Calcium Total Bilirubin AST ALT Alkaline Phosphatase Total Creatine Kinase CK-MB (CK-2) Troponin I Total Protein Albumin Globulin Albumin/Globulin Ratio Lipase Urine Color Urine Appearance Urine pH Ur Specific [place] Urine Protein Urine Glucose (UA) Urine Ketones Urine Occult Blood Urine Nitrate Urine Bilirubin Urine Ictotest Urine Urobilinogen Ur Leukocyte Esterase Urine RBC Urine WBC Ur Squamous Epith Cells Urine Bacteria Ur Culture Indicated? Micro UA Comment Nasal Screen MRSA (PCR) Positive for mrsa H A. baumannii (PCR) Kira albicans (PCR) C. glabrata (PCR) C. krusei (PCR) C. parapsilosis (PCR) C. tropicalis (PCR) Enterobacteriac sp PCR E. cloacae complex PCR Enterococcus sp PCR E. coli (PCR) H. influenzae (PCR) Klebsiella oxytoca PCR Klebsiella pneumoniae List. monocytogenes PCR N. meningitidis (PCR) Proteus species (PCR) Serratia marcescens PCR Staphylococcus sp PCR Staph aureus (PCR) mecA-Methicil Res Gene Streptococcus sp PCR Group A Strep (PCR) Strep agalactiae (PCR) Strep pneumoniae (PCR) P. aeruginosa (PCR) Jany/B-Vanco Res Genes KPC-Carbap Res Gene PCR 02/08/18 02/08/18 02/08/18 08:00 08:00 Unknown WBC RBC Hgb Hct MCV MCH MCHC RDW Plt Count Neut % (Auto) Lymph % (Auto) [place] % (Auto) Eos % (Auto) Baso % (Auto) Neut # (Auto) PT INR APTT Sodium Potassium Chloride Carbon Dioxide BUN Creatinine Estimated GFR BUN/Creatinine Ratio Glucose Lactate Calcium Total Bilirubin AST ALT Alkaline Phosphatase Total Creatine Kinase CK-MB (CK-2) Troponin I Total Protein Albumin Globulin Albumin/Globulin Ratio Lipase Urine Color [place] Urine Appearance Clear Urine pH 5.0 Ur Specific [place] <=1.005 Urine Protein 1+ H Urine Glucose (UA) Negative Urine Ketones Trace H Urine Occult Blood Negative Urine Nitrate Negative Urine Bilirubin 2+ H Urine Ictotest Positive H Urine Urobilinogen 2.0 H Ur Leukocyte Esterase Negative Urine RBC 0-1/hpf Urine WBC 1-5/hpf Ur Squamous Epith Cells 0-1 /hpf Urine Bacteria Few (2-10) H Ur Culture Indicated? Cult not indicated Micro UA Comment Not Reportable Nasal Screen MRSA (PCR) A. baumannii (PCR) Not detected Kira albicans (PCR) Not detected C. glabrata (PCR) Not detected C. krusei (PCR) Not detected C. parapsilosis (PCR) Not detected C. tropicalis (PCR) Not detected Enterobacteriac sp PCR Detected H E. cloacae complex PCR Not detected Enterococcus sp PCR Not detected E. coli (PCR) Detected H H. influenzae (PCR) Not detected Klebsiella oxytoca PCR Not detected Klebsiella pneumoniae Not detected List. monocytogenes PCR Not detected N. meningitidis (PCR) Not detected Proteus species (PCR) Not detected Serratia marcescens PCR Not detected Staphylococcus sp PCR Not detected Staph aureus (PCR) Not detected mecA-Methicil Res Gene Not detected Streptococcus sp PCR Not detected Group A Strep (PCR) Not detected Strep agalactiae (PCR) Not detected Strep pneumoniae (PCR) Not detected P. aeruginosa (PCR) Not detected Jany/B-Vanco Res Genes Not detected KPC-Carbap Res Gene PCR Not detected Assessment & Plan Plan: Assessment/Plan Narrative: 1. Septic shock Patient received at least 30 cc of fluid IV per kg body weight in the 1st hour to upon admission to the ER. Patient's mean arterial pressure was still running less than 65 mm of mercury. Initial order included patient to be started on dopamine IV infusion if the blood pressure was refractory. I changed the IV dopamine to IV Levophed. Patient at lesser risk of having tachyarrhythmias with the Levophed compared to the dopamine. I have written order for patient to continue to have IV bolus of fluids 500 cc of for map less than 65. This can be used in conjunction with the vasopressor therapy in ICU setting. Note patient on IV antibiotics on admission. Source of the infection not entirely clear. The urinalysis was reported negative for UTI. Note the blood culture was coming back positive for E coli and 3/4 bottles. A Griffin catheter was placed in the emergency room setting. Will need to determine if there was a elevated postvoid residual prior to placement of the Griffin catheter or if the Griffin catheter was monitored for output in a short period after the placement. Will need to follow up on the blood culture of E coli to assure this is not a extended spectrum beta lactamase positive organism. 2. E coli bacteremia Zosyn at 3.375 g IV q.6 hours being provided. Blood cultures old follow-up be followed up to ensure sensitivity with the Zosyn. Note a CT of the abdomen pelvis with contrast was done earlier today in the ER. Diverticulitis L [place] was noted but not diverticulitis. Region of discomfort was primarily the suprapubic region of the abdomen. I am certain I am certainly suspicious there may be an outlet obstruction for the bladder. 3. Metabolic alkalosis This is likely related to the dehydration hypotensive state of the patient. Contraction alkalosis suspected. Continue IV fluids. Repeat labs in a.m.. 4. History of coronary artery disease Force stents placed to the coronary arteries earlier this year with a non STEMI around the time of his septic right knee infection. 5. Other past med medical history includes COPD osteoarthritis proximal atrial fibrillation We will continue his home medications as tolerated. Will continue the amiodarone as tolerated. Holding the beta-maria c at this time. Discharge planning Patient will likely require at least 3-4 days in the hospital to address this septic shock and infection. Patient was residing in a nursing facility prior to this admission. Time spent for patient 75 min which includes conversations with the ICU nursing staff case management as well as the Business Management Professor Physician last night. Quality VTE Deep Vein Thrombosis/Pulmonary Embolism Present on Admission: No
[2018-02-08] MEDS: ATORVASTATIN 20 MG TABLET 40 MG PO (13:26)
[2018-02-08] MEDS: ENOXAPARIN 40 MG/0.4 ML SYRINGE SUBCUT (13:26)
[2018-02-08] MEDS: GABAPENTIN 100 MG CAPSULE PO ×2 (13:27→21:50)
--- NOTE | 2018-02-08 14:46 | PC.NURSE ---
PT DENIES PAIN THIS SHIFT, LEVOPHED STARTED AND DOPAMINE D/C'D FOR MAP >65- UP TO 8MCG/MIN AND NOW DECREASED TO 3MCG/MIN- EDEMA TO BILAT LOWER EXTREMITIES AND GENERALIZED/DEPENDENT, FORD WITH ADEQUATE UOP. BLOOD CULTURES + SHOWING E-COLI. AWAITING PICC LINE PLACEMENT- TOLERATING DIET WELL, O2 @ 2L NC
--- NOTE | 2018-02-08 17:03 | DI.RAD.S_ITS ---
PROCEDURE: XR CHEST FOR PICC 1V INDICATIONS: LINE PLACEMENT COMPARISON: None. FINDINGS: PICC was placed by the intravenous therapy team from the left side. The tip of the PICC is projected over the cavoatrial junction. IMPRESSION: Tip of PICC projected over the cavoatrial junction. Dictated by: Thania Rodriguez M.D. on 02/08/2018 at 17:52 Approved by: Thania Rodriguez M.D. on 02/08/2018 at 17:52
[2018-02-08] MEDS: DOCUSATE 100 MG CAPSULE PO (21:50)
[2018-02-08] MEDS: MIRTAZAPINE 7.5 MG TABLET PO (21:50)
[2018-02-09] VITALS (19 sets, daily range): BP systolic 90–124; BP diastolic 48–81; PULSE 75–107; RESP 12–29; TEMP 36.5–37.2; O2SAT 93–99
[2018-02-09] MEDS: NOREPINEPHRINE 4 MG in DEXTROSE 5% IN WATER 250 ML 15.24 ML IV (00:11)
[2018-02-09] MEDS: PIPERACILLIN-TAZO 3.375 GM/50 ML FROZ.PIGGY IV ×2 (00:12→06:07)
[2018-02-09] MEDS: HYDROCODONE/ACET 5/325 TABLET 1 TAB PO (01:30)
[2018-02-09] MEDS: SODIUM CHLORIDE 0.9% 1,000 ML 125 ML IV ×3 (02:51→20:56)
--- NOTE | 2018-02-09 06:15 | PC.NURSE ---
Patient has been drowsy but oriented x3, calm and cooperative, denies chest pain or dyspnea. Levophed gtt infused at 4mcg/min throughout night to keep MAP >65, able to decrease gtt at 0530 t0 3mcg/min, see vital trends. SR, BBB, having more frequent PVCs toward am. One Vicodin given for c/o headache-effective. Picc site continues to ooze blood, dressing reinforced and pressurized.
[2018-02-09] MEDS: AMIODARONE 200 MG TABLET PO (09:43)
[2018-02-09] MEDS: PANTOPRAZOLE 40 MG TABLET PO (09:43)
[2018-02-09] MEDS: ATORVASTATIN 20 MG TABLET 40 MG PO (09:43)
[2018-02-09] MEDS: CLOPIDOGREL 75 MG TABLET PO (09:43)
[2018-02-09] MEDS: GABAPENTIN 100 MG CAPSULE PO ×3 (09:44→20:54)
[2018-02-09] MEDS: ALBUTEROL HFA 60 PUFF/8 GM INH INH (09:44)
[2018-02-09] MEDS: DOCUSATE 100 MG CAPSULE PO ×2 (09:44→20:54)
[2018-02-09] MEDS: DIGOXIN 0.125 MG TABLET PO (09:44)
[2018-02-09] MEDS: ENOXAPARIN 40 MG/0.4 ML SYRINGE SUBCUT (09:44)
[2018-02-09] MEDS: MEROPENEM 1 GM in SODIUM CHLORIDE 0.9% 100 ML 200 ML IV ×2 (10:26→16:58)
--- NOTE | 2018-02-09 15:53 | PC.NURSE ---
1545-Patient c/o feeling cold. Room temperature is at 80 degrees. Patient is wrapped in warm blankets. Temporal temp is 98.8. Patient advised that it would be good for him to get up for dinner. Patient upset at being 'told' what to do. Explained to patient that lying in bed is the worst thing for his lungs and puts him at high risk for pneumonia. Patient states he doesn't care about that he feels he should be able to choose when he gets up. will monitor
--- NOTE | 2018-02-09 19:34 | PM.PN.1 ---
Subjective Date Patient Seen: 02/09/18 Time Patient Seen: 13:34 Interval history: History of present illness Patient with E coli bacteremia. Unclear at this point the sensitivity. Assuming ESBL positive E coli infection since this was noted in December 2017 on culture. Review of system Patient notes no chest pain or shortness of breath or nausea. Exam Vital Signs (past 8 hours): - 02/09/18 11:46 02/09/18 12:30 02/09/18 14:00 Temperature 97.9 F 98.1 F Pulse Rate 88 86 90 Respiratory Rate 18 22 18 Blood Pressure 98/58 L 124/81 H 112/73 Pulse Oximetry 97 93 96 02/09/18 15:30 02/09/18 16:00 02/09/18 17:00 Temperature 98.9 F Pulse Rate 96 H 94 H 100 H Respiratory Rate 12 24 26 H Blood Pressure 107/69 106/64 119/74 Pulse Oximetry 97 96 97 02/09/18 18:00 02/09/18 19:00 Temperature Pulse Rate 107 H 97 H Respiratory Rate 29 H 25 H Blood Pressure 108/68 95/52 L Pulse Oximetry 99 97 Oxygen Delivery Method Nasal Cannula Oxygen Flow Rate 0 Narrative Exam Narrative: General appearance patient is awake and alert. Vital signs as noted Psychiatric Patient is well oriented. Mood is pleasant cooperative. Cognition appears intact. Respiratory Clear to auscultation no wheezes no crackles Cardiovascular Regular in rate and rhythm. No murmur noted no rubs no gallops GI Fairly soft nontender positive bowel sounds no masses no guarding Neurologic No focal neurologic changes cranial nerves 2-12 grossly intact Objective Labs Result Diagrams: 02/07/18 21:11 02/07/18 21:11 Assessment & Plan Plan: Assessment/Plan Narrative: 1. Septic shock Patient received at least 30 cc of fluid IV per kg body weight in the 1st hour upon admission to the ER. Patient's mean arterial pressure was still running less than 65 mm of mercury. Initial order included patient to be started on dopamine IV infusion if the blood pressure was refractory. I changed the IV dopamine to IV Levophed. Patient at lesser risk of having tachyarrhythmias with the Levophed compared to the dopamine. I have written order for patient to continue to have IV bolus of fluids 500 cc of for map less than 65. This can be used in conjunction with the vasopressor therapy in ICU setting. Note patient on IV antibiotics on admission. Source of the infection not entirely clear. The urinalysis was reported negative for UTI. Note the blood culture was coming back positive for E coli in 3/4 bottles. A Griffin catheter was placed in the emergency room setting. Will need to determine if there was a elevated postvoid residual prior to placement of the Griffin catheter or if the Griffin catheter was monitored for output in a short period after the placement. Will need to follow up on the blood culture of E coli to assure this is not a extended spectrum beta lactamase positive organism. In AM today I changed the antibiotic to Meropenem 1 gram IV q8H to better address ESBL E Coli if that is what the sensitivity reports. Note last month the E Coli organism was ESBL positive. 2. Metabolic alkalosis This is likely related to the dehydration hypotensive state of the patient. Contraction alkalosis suspected. Continue IV fluids. Repeat labs in a.m.. 3. History of coronary artery disease Four stents placed to the coronary arteries earlier in year. A non STEMI around the time of his septic right knee infection. 4. Other past med medical history includes COPD osteoarthritis proximal atrial fibrillation We will continue his home medications as tolerated. Will continue the amiodarone as tolerated. Holding the beta-maria c at this time. Discharge planning Patient will likely require at least 2-3 more days in the hospital to address the septic shock and infection. Patient was residing in a nursing facility prior to this admission. Time Spent With Patient Time with patient: Greater than 35 minutes Quality VTE Deep Vein Thrombosis/Pulmonary Embolism Present on Admission: No
[2018-02-09] MEDS: MIRTAZAPINE 7.5 MG TABLET PO (20:54)
--- NOTE | 2018-02-09 22:50 | PC.NURSE ---
2100- Antecube dressing to right arm soiled and catheter was out. Removed catheter and cleaned IV site. Left upper arm PICC site saturatied pressure dressing removed and site cleaned using sterile technique. Patient tolerated procedures well.
[2018-02-10] VITALS (9 sets, daily range): BP systolic 96–135; BP diastolic 45–91; PULSE 85–112; RESP 14–26; TEMP 36.5–37; O2SAT 94–96
[2018-02-10] MEDS: MEROPENEM 1 GM in SODIUM CHLORIDE 0.9% 100 ML 200 ML IV ×2 (01:31→09:38)
[2018-02-10] MEDS: SODIUM CHLORIDE 0.9% 1,000 ML 125 ML IV ×2 (05:50→14:56)
[2018-02-10] MEDS: ATORVASTATIN 20 MG TABLET 40 MG PO (09:39)
[2018-02-10] MEDS: CLOPIDOGREL 75 MG TABLET PO (09:39)
[2018-02-10] MEDS: PANTOPRAZOLE 40 MG TABLET PO (09:40)
[2018-02-10] MEDS: GABAPENTIN 100 MG CAPSULE PO ×2 (09:40→16:29)
[2018-02-10] MEDS: ENOXAPARIN 40 MG/0.4 ML SYRINGE SUBCUT (09:40)
[2018-02-10] MEDS: DIGOXIN 0.125 MG TABLET PO (09:40)
[2018-02-10] MEDS: DOCUSATE 100 MG CAPSULE PO ×2 (09:40→19:59)
[2018-02-10] MEDS: AMIODARONE 200 MG TABLET PO (09:40)
[2018-02-10] MEDS: ALBUTEROL HFA 60 PUFF/8 GM INH INH (11:20)
--- NOTE | 2018-02-10 13:42 | PC.NURSE ---
Pt is AO x3 and able to make needs known with clear speech. Pt is resistant to care. Declines to get OOB to chair for meals. Set up assistance required. Pt does not want the HOB elevated during meals. Educated to risk for aspiration and importance of progressive mobility. Pt verbalizes understanding. Thank you for being concerned. I've eaten this way for a long time with no problems. Noted dry cough after eating. Pt did sit up to chair for about an hour this AM and then transferred back to bed. 2PA is advised as pt is not open to safe transfer instructions and is impulsive at times. Call light in reach. Pt needs reinforcement to use call light instead of calling out.
[2018-02-10] MEDS: CEFTRIAXONE 1 GM/50 ML FROZ.PIGGY IV (16:55)
--- NOTE | 2018-02-10 18:16 | PC.NURSE ---
patient is a&ox4, 96% on ra, and denies any pain during shift assessment. this rn assessed ble and noticed day lumen was resting firming against right calf and left an erythemic imprint on skin. adjusted leg and day catheter so skin was clear; skin is already starting to show improvement but will continue to monitor. fine crackles to upper airway anterior, diminished in bases bilaterally. patient observed to be aggravated, stating he wants salt but d/t diet order, this rn cannot give. call light in reach, will continue to monitor.
[2018-02-10] MEDS: RIVAROXABAN 10 MG TABLET 15 MG PO (18:28)
[2018-02-10] MEDS: POTASSIUM CHLORIDE 10 MEQ TAB PO (20:00)
[2018-02-10] MEDS: METOPROLOL 12.5 MG TABLET PO (20:00)
--- NOTE | 2018-02-10 20:30 | PC.NURSE ---
Pt arrived from ICU @ 191. Denies discomfort at this time. Tele showing NSR per ICU staff. IV continues at TKO rate as per orders. Call light w/in reach, bed alarm on for pt safety. Continue w/plan of care.
--- NOTE | 2018-02-10 23:02 | PM.PN.1 ---
Subjective Date Patient Seen: 02/10/18 Time Patient Seen: 14:03 Interval history: History of present illness Follow-up on patient with E coli bacteremia Review of systems Patient denies having any chest pain or shortness of breath or nausea. He notes feeling remarkably better. He is anxious for discharge Exam Vital Signs (past 8 hours): - 02/10/18 16:00 02/10/18 19:00 02/10/18 19:12 Temperature 97.9 F 98.4 F Pulse Rate 90 101 H 99 H Respiratory Rate 23 18 24 Blood Pressure 133/91 H 130/78 H Pulse Oximetry 96 96 96 Oxygen Delivery Method Room Air Oxygen Flow Rate 0 Narrative Exam Narrative: General appearance Patient appears to be in much better spirits and mood. As patient states he is feeling better. No apparent distress. Psychiatric Well oriented mood is pleasant affect is appropriate Respiratory Fairly good air flow on auscultation with no wheezes no crackles Cardiovascular Regular rate rhythm no murmur rubs or gallops pulses +3 to extremities GI Soft abdomen nontender positive bowel sounds no masses no bruits Neurologic No focal neurologic changes. Cranial nerves 2-12 grossly intact Objective Labs Result Diagrams: 02/07/18 21:11 02/07/18 21:11 Assessment & Plan Plan: Assessment/Plan Narrative: 1. Septic shock Patient received at least 30 cc of fluid IV per kg body weight in the 1st hour upon admission to the ER. Patient's mean arterial pressure was still running less than 65 mm of mercury. Initial order included patient to be started on dopamine IV infusion if the blood pressure was refractory. I changed the IV dopamine to IV Levophed. Patient at lesser risk of having tachyarrhythmias with the Levophed compared to the dopamine. I have written order for patient to continue to have IV bolus of fluids 500 cc of for map less than 65. The IV fluids used in conjunction with the vasopressor therapy in ICU setting. Note patient has been off Levophed vasopressor therapy for at least 24 hr. I have downgraded the patient to med surgical floor. The blood culture came back with E coli pansensitive. As such, I was able to stop the meropenem antibiotic and provide patient Rocephin antibiotic for effective treatment. 2. Metabolic alkalosis This is likely related to the dehydration hypotensive state of the patient. Contraction alkalosis suspected. Continue IV fluids. Repeat labs in a.m.. 3. History of coronary artery disease Four stents placed to the coronary arteries earlier in year. A non STEMI around the time of his septic right knee infection. 4. Other past med medical history includes COPD osteoarthritis proximal atrial fibrillation Resume patient's home medications of his blood pressure is more stable. Discharge planning Patient was residing in a nursing facility prior to this admission. I anticipate patient will be a candidate for discharge tomorrow. I can discharge him on an oral antibiotic to continue treatment of his E coli bacteremia. Time Spent With Patient Time with patient: 25 - 35 minutes Quality VTE Deep Vein Thrombosis/Pulmonary Embolism Present on Admission: No
[2018-02-11 00:23] VITALS: BP 123/76; PULSE 83; RESP 16; TEMP 37.2
[2018-02-11 03:58] VITALS: BP 113/70; PULSE 81; RESP 18; TEMP 37.1
[2018-02-11] MEDS: PANTOPRAZOLE 40 MG TABLET PO (05:57)
--- NOTE | 2018-02-11 06:35 | PC.NURSE ---
Pt is confused, he thinks he's at home. Pt wants to leave and go to work. Pt denied pain, nausea, sob, or chest pain. call light in reach. bed alarm active.
[2018-02-11 08:00] VITALS: BP 131/86; PULSE 86; RESP 16; O2SAT 95
[2018-02-11] MEDS: DOCUSATE 100 MG CAPSULE PO (08:40)
[2018-02-11] MEDS: FUROSEMIDE 20 MG TABLET 60 MG PO (08:40)
[2018-02-11] MEDS: METOPROLOL 12.5 MG TABLET PO (08:41)
[2018-02-11] MEDS: POTASSIUM CHLORIDE 10 MEQ TAB PO (08:48)
--- NOTE | 2018-02-11 10:49 | PT.IIE ---
Current Diagnoses Sepsis due to Escherichia coli [E. coli] (02/08/18) Surgical History (Last Reviewed 02/08/18 @ 03:47 by Jo-Ann Feliciano DO) Presence of coronary angioplasty implant and graft (Chronic) Medical History (Last Reviewed 02/08/18 @ 03:47 by Jo-Ann Feliciano DO) Anemia (Chronic) Anorexia (Chronic) Atherosclerosis (Chronic) Benign prostatic hyperplasia without lower urinary tract symptoms (Chronic) COPD (chronic obstructive pulmonary disease) (Chronic) Hypertensive heart disease with heart failure (Chronic) Major depressive disorder, single episode (Chronic) Morbid obesity due to excess calories (Chronic) Obstructive sleep apnea (Chronic) Orthostatic hypotension (Chronic) Osteoarthritis (Chronic) Paroxysmal atrial fibrillation (Chronic) Polyneuropathy, unspecified (Chronic) 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) Infection/inflammation due to internal orthopedic device/implant/graft (Resolved) Non-ST elevated myocardial infarction (non-STEMI) (Resolved) Streptococcus, group b, as the cause of diseases classified elsewhere (Resolved) Physical Therapy Inpatient Evaluation/Re-Eval M1 PT/OT-IP Prior Functional Status Start: 02/11/18 11:03 Freq: NEEDED Status: Active Protocol: Document 02/11/18 10:49 MDD (Rec: 02/11/18 14:14 MDD [email or web address]) Medical Review Prior Functional Status Medical History Reviewed Yes Communication nml Mobility and Gait independent Activities of Daily Living and IADL's independent Social History Household Members none Living Arrangements House Number of Floors (Floors) One Floor Number of Stairs To Enter/Railing? 1 step onto deck to enter. 1 handrail on R. 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 He lives on [facility] [address] [facility] [address], but has been staying at [facility] for the last 6 months. His plan was to d/c home to [facility] around mid February. M2 PT-IP Current Condition Start: 02/11/18 14:03 Freq: NEEDED Status: Active Protocol: Document 02/11/18 10:49 MDD (Rec: 02/11/18 14:14 MDD [email or web address]) Physical Therapy Current Condition Current Condition Evaluation Date 02/11/18 Treatment Diagnosis abdominal pain, septic shock, impaired mobility Onset Date 02/07/18 Weight Bearing Status Weight Bearing Status Weight Bear as Tolerated M3 PT-IP Subjective Start: 02/11/18 14:03 Freq: NEEDED Status: Active Protocol: Document 02/11/18 10:49 MDD (Rec: 02/11/18 14:14 MDD [email or web address]) Subjective Physical Therapy Visit Type Type Initial Evaluation Visit Start Time 10:15 Visit Stop Time 10:49 Total Visit Minutes 34 Number of MINE SAFETY ENGINEER Visits 0 Physical Therapy Visit Comments Patient Comments Pt reports he is motivated to get back to [facility] so he can continue his rehab and go home . States he feels much better overall. Therapy Pain Assessment Pain Present Pain Present Denied Pain M4 PT-IP Mobility and Gait Start: 02/11/18 14:03 Freq: NEEDED Status: Active Protocol: Document 02/11/18 10:49 MDD (Rec: 02/11/18 14:14 MDD [email or web address]) PT-Bed Mobility Assessment Rolling Type of Rolling Roll to Right Level of Assist Minimal Assistance Supine to Sit Supine to Sit Contact Guard Assistance Sit to Supine Sit to Supine Standby Assistance Scooting Scooting to Edge of Bed Independent Scooting Up and Down in Bed Contact Guard Assistance PT-Transfer Assessment Sit to and From Stand Sit to and from Stand Moderate Assistance Equipment Transfer Assistive Device Gait Belt Front Wheeled Walker Transfers Transfer Destination Bed Bedside Commode Transfer Technique Stand Step Pivot Transfer Ability Level of Assist Moderate Assistance Comments Mobility Comments Pt very shaky in standing, difficulty maneuvering the walker during transfer PT-Balance Assessment Sitting Balance and Reactions Static Sitting Balance Ability Normal Dynamic Sitting Balance Ability Normal Standing Balance and Reactions Static Standing Balance Ability Fair Dynamic Standing Balance Ability Poor M5 PT-IP Objective Assessments Start: 02/11/18 14:03 Freq: NEEDED Status: Active Protocol: Document 02/11/18 10:49 MDD (Rec: 02/11/18 14:14 MDD [email or web address]) Orientation Orientation/Cognition Level of Alertness Alert Orientation Name Age Birthday Month Date Year Day of Week Place Situation Language Function Ability No Deficits Noted Safety Awareness Understands Safety Issues Memory Description No Deficits Noted Gross Range of Motion Lower Extremity ROM Assessment Within Functional Limits Sensation Assessment Sensation Gross Sensation WNL M7 PT-IP Assessment and Plan Start: 02/11/18 14:03 Freq: NEEDED Status: Active Protocol: Document 02/11/18 10:49 MDD (Rec: 02/11/18 14:14 MDD [email or web address]) PT Summary Assessment and Plan Potential Rehabilitation Potential Good Status of Condition at Evaluation Evolving Summary Impairments Strength Balance Transfers Gait Activity Tolerance Progress Towards Goals Progressing Toward Goals Safe For Discharge Assessment Summary Pt demonstrates ability to perform bed mobility with min A and sit to stand and tranfers with mod A x1. He is not yet safe to return to his home on [facility], but considered safe for return to [facility] to continue his rehabilitation. Goals Bed Mobility Goal Contact Guard Assistance Transfer Goal Minimal Assistance Gait Goal Minimal Assistance Gait Distance 10 feet Days to Meet Goals 2 Frequency of Treatment Frequency Of Treatment Once a Day Treatment Plan Physical Therapy Treatment Plan Bed Mobility Training Transfer Training Gait Training Balance Retraining Recommendations To Nursing Amount of Assist Needed 1 Person Assist Discharge Recommendations PT Discharge Recommendations SNF Rehab
--- NOTE | 2018-02-11 11:09 | OT.IP.TRT ---
Current Diagnoses Sepsis due to Escherichia coli [E. coli] (02/08/18) Occupational Therapy Treatment Note M3 OT- IP Subjective and Pain Start: 02/11/18 11:03 Freq: Status: Active Protocol: Document 02/11/18 11:04 [facility] (Rec: 02/11/18 11:08 [facility] [email or web address]) OT- Subjective Occupational Therapy Visit Type Type Administrative Note Notes Pt looking to be discharged back to skilled rehab today, therefore defer OT needs to SNF OT. Therefore DC OT eval order.
--- NOTE | 2018-02-11 11:22 | CM.DPC ---
DCP Cont: Per MD, patient is medically stable to discharge back to [facility] today. This field nurse case manager has updated Mel at [facility], she is verifying admit due to several admissions that they have today. P.T/O.T to assess patient today for discharge. Met with patient in room, is agreeable to discharge back to [facility]. Per Gaby VILLAGOMEZ, waiting for patient to void. Updated nurse regarding FCC status. P: Awaiting return call from [facility] to confirm that patient can be accepted today. Rosalind Johns RN/Belt Maker
[2018-02-11 12:00] VITALS: BP 103/68; PULSE 77; RESP 18; TEMP 36.6; O2SAT 95
--- NOTE | 2018-02-11 15:34 | PC.NURSE ---
D/C REPORT PHONED INTO [facility] AT [facility]. PICC LINE REMOVED. HAO STOCK APPLIED.
--- NOTE | 2018-02-11 16:34 | PC.NURSE ---
Discharge Note Pt A&O, VSS, 95% on RA. Pt voided and used bedside commode prior to departure. Left via wheelchair w/ GEOPHYSICAL OPERATOR and all belongings. GEOPHYSICAL OPERATOR given discharge packet, answered all questions and concerns.
--- NOTE | 2018-02-22 10:14 | P.DS_ITS ---
History of Present Illness Date Patient Seen: 02/11/18 Time Patient Seen: 14:01 Chief complaint: suprapubic abdominal pain, Narrative: Patient notes shaking chills and rigors associated with the abdominal discomfort. Patient was diagnosed and treated for C diff colitis November 2017. Patient was somewhat complicated history regarding his knee replacement. Patient originally had his right knee replaced February 2014. Patient had a septic joint the prosthesis was removed earlier this year. The prosthesis was replaced approximately 2-3 months ago after treatment of the septic joint region. Discharge Providers Date of admission: 02/08/18 02:03 Primary care physician: Olinda Green MD Consults: 02/10/18 16:25 Consult to Occupational Therapy Evaluate & Treat Comment: Physician Instructions: Evaluate and treat Consult to Physical Therapy Evaluate & Treat Comment: Physician Instructions: Evaluate and Treat Discharge provider: Edgar Justice MD Summary Discharge Diagnosis: E Coli Bacteremia Septic Shock (resolved) Metabolic Alkalosis (contractiong Alkalosis) secondary to Dehydration (resolved) Elevated Liver Enzymes (improved) Hospital Course: Patient admtted with E Coli Bacteremia. Septic Shock secondary to the Bacteremia noted. There was concern patient might have an ESBL E Coli infection so the IV antibiotic was changed to Meropenem while awaiting the antibiotic sensitivity to the E Coli. Once assured the E Coli organism was indeed sensitive to Rocephin the antibiotic was changed once again. Patient continued to respond favorably to the plan of care during hospital course. No hemodynamic instability noted during my period of care of patient. The alkalosis resolved with IV hydration. The liver enzymes trended downward as hoped. Jaz was safe for discharge on February 11 and was sent with a change from IV Rocephin to oral Cipro at 500 mg po bid for a total of 14 days of antibiotic coverage to treat. Status at Discharge Cognitive/behavioral status at discharge: awake and alert and well oriented. Mood was pleasant and affect appropriate Functional status at discharge: wheelchair bound Overall status at discharge: patient is progressing back to baseline Time Spent with Patient Greater than 30 minutes Exam Vital Signs (past 8 hours): Oxygen Delivery Method Room Air Oxygen Flow Rate 0 Narrative Exam Narrative: awake and alert Resp was clear to auscultation Cardio was regular in rate and rhythm. Pulses +3 to extremities GI was benign with good bowel sounds. Non tender, no bruits Extrem warm neurologic no lateralizing deficit changes noted Objective Labs Result Diagrams: 02/07/18 21:11 02/07/18 21:11 Discharge Plan Discharge Plan Patient Disposition: SNF Transfer to: [facility] Transportation: Wheelchair I certify the postop hospital retirement care is medically necessary on a continuing basis for any conditions for which he/ she received care during this hospitalization.: Yes The receiving facility has agreed to accept transfer and provide medical treatment.: Yes Provider Discharge Instructions Liquid consistency: Normal/Thin Food texture: Regular Catheter comment: remove cath on discharge. Skin/Wound/Dressing Care Report to your healthcare provider any signs of infection, such as:: chills, fever, night sweats, increased pain and unusual drainage Special Rehabilitation Services Rehab type: Physical therapy Discharge Data Primary Care Provider: Olinda Green Attending Provider: Edgar Justice Admit Date/Time: 02/08/18 02:03 Discharges patient from system. Discharge Date/Time: 02/11/18 16:00 Quality VTE Deep Vein Thrombosis/Pulmonary Embolism Present on Admission: No
== END 2018-02-11 16:00 | DRG 871 ==
LOC: ED 20:36 → ICU 02-08 07:00 → AC 02-11 11:26 → ICU 02-11 13:42
PROVIDERS: Internal Medicine; Admitting Provider Internal Medicine; Emergency Provider Emergency Medicine; PCP Internal Medicine; Visit Provider Internal Medicine
DX: A41.51 Sepsis due to Escherichia coli [E. coli] (principal); R65.21 Severe sepsis with septic shock; E87.3 Alkalosis; I25.10 Atherosclerotic heart disease of native coronary artery without angina pectoris; J44.9 Chronic obstructive pulmonary disease, unspecified; I48.0 Paroxysmal atrial fibrillation; F32.9 Major depressive disorder, single episode, unspecified; E66.9 Obesity, unspecified; Z68.35 Body mass index [BMI] 35.0-35.9, adult; G47.33 Obstructive sleep apnea (adult) (pediatric); G62.9 Polyneuropathy, unspecified
CPT/HCPCS: 36415; 36591; 71045; 74177; 80053; 81001; 81003; 82550; 83605; 83690; 84484; 85025; 85610; 85730; 87040; 87077; 87150; 87186; 87205; 87797; 93005; 93010; 93970; 94640; 94760; 96361; 96365; 96367; 96375; 97161; 99285; C9113; J1650; J1885; J2185; J2270; J2405; J2543; Q9967

== ENCOUNTER → 2018-02-16 08:38 | Outpatient (REF) | payer MEDICARE, MEDICAID, SELFPAY ==
[2018-02-08 03:59] VITALS: BMI 32.8
[2018-02-16 09:12] LABS: Add Manual Diff / Slide Review NO; Basophils Percent Auto 0.6 % (0-2); Eosinophils Percent Auto 5.7 % (2-4); Hematocrit 32.9 % (41-53); Lymphocytes Percent Auto 31.7 % (25-40); Mean Corpuscular HGB Conc 33.4 % (30-36); Mean Corpuscular Hemoglobin 29.8 PG (26-34); Mean Corpuscular Volume 89.3 fL (80-100); Monocytes Percent Auto 10.9 % (3-14); Neutrophils Absolute Auto 2200 /uL (3000-5900); Neutrophils Percent Auto 51.1 % (50-75); Platelet Count 214 X10^3/uL (150-400); Red Blood Cell Count 3.68 X10^6/uL (4.5-5.9); Red Cell Distribution Width 15.6 % (11.6-14.8); White Blood Cell Count 4.4 X10^3/uL (4.5-11.0)
[2018-02-16 09:38] LABS: Alanine Aminotransferase 48 IU/L (21-72); Albumin 2.4 g/dL (3.5-5.0); Albumin Globulin Ratio 0.8 (1.0-2.8); Alkaline Phosphatase 159 U/L (38-126); Aspartate Aminotransferase 30 IU/L (17-59); BUN Creatinine Ratio 5.7 (6-22); Bilirubin Total 0.5 mg/dL (0.2-1.3); Blood Urea Nitrogen 4 mg/dL (9-20); Carbon Dioxide 37 mmol/L (22-32); Chloride 101 mmol/L (98-107); Estimated Glomerular Filt Rate > 60.0 mL/min (>60); Globulin 2.9 g/dL (1.7-4.1); Glucose 74 mg/dL (80-110); HEMOLYSIS < 15 (0-50); Sodium 141 mmol/L (137-145); Total Protein 5.3 g/dL (6.3-8.2)
[2018-02-16 09:46] LABS: Potassium 2.7 mmol/L (3.4-5.1)
== END ==
LOC: LAB 08:38
PROVIDERS: PCP Internal Medicine; Visit Provider Internal Medicine
DX: A41.9 Sepsis, unspecified organism (principal)
CPT/HCPCS: 36415; 80053; 85025

== ENCOUNTER → 2018-02-21 08:27 | Outpatient (REF) | payer MEDICARE, MEDICAID, SELFPAY ==
[2018-02-08 03:59] VITALS: BMI 32.8
[2018-02-21 10:15] LABS: Blood Urea Nitrogen 8 mg/dL (9-20); Calcium 8.7 mg/dL (8.4-10.2); Carbon Dioxide 35 mmol/L (22-32); Chloride 99 mmol/L (98-107); Estimated Glomerular Filt Rate > 60.0 mL/min (>60); Glucose 87 mg/dL (80-110); HEMOLYSIS < 15 (0-50); Potassium 3.7 mmol/L (3.4-5.1); Sodium 141 mmol/L (137-145)
== END ==
LOC: LAB 08:27
PROVIDERS: PCP Internal Medicine; Visit Provider Nurse Practitioner Family
DX: E87.6 Hypokalemia (principal)
CPT/HCPCS: 36415; 80048

== ENCOUNTER 2018-04-29 10:59 | Emergency (ER) | payer MEDICARE, MEDICAID, SELFPAY ==
[2018-02-08 03:59] VITALS: BMI 32.8
--- NOTE | 2018-04-29 11:00 | ED_ITS ---
HPI - Chest Pain General Chief Complaint: Shortness of Breath/Dyspnea Stated Complaint: heart distress Time Seen by Provider: 04/29/18 10:59 Source: patient Mode of arrival: wheelchair Limitations: no limitations History of Present Illness HPI narrative: Patient is a 72-year-old male with a history of congestive heart failure who is not on Lasix he states that for the past 4 weeks he has had problems laying flat secondary to shortness of breath. He states that this causes him to have problems sleeping. No chest pain. Does use a walker at home. States that he can ambulate around his house without becoming too short of breath however probably would not be able to make it out to the mailbox. States that after his last admission to the hospital for sepsis he was sent to a rehab facility knee states that when he was discharged from the rehab facility they discontinued his Lasix. He states that he has also had increasing swelling in bilateral lower extremities for the past 4 weeks. He has a follow-up with his primary doctor scheduled for 1 week from Wednesday. Related Data Home Medications Medication Instructions Recorded Confirmed acetaminophen 650 mg PO Q4H PRN 11/12/17 04/29/18 gabapentin 100 mg PO QID 11/12/17 04/29/18 rivaroxaban [Xarelto] 15 mg PO QPM 11/12/17 02/08/18 Digox 0.125 mg PO DAILY 02/08/18 02/08/18 furosemide 60 mg PO DAILY 02/08/18 02/08/18 Previous Rx's Medication Instructions Recorded furosemide [Lasix] 60 mg PO DAILY #90 tab 04/29/18 Allergies Allergy/AdvReac Type Severity Reaction Status Date / Time hydrochlorothiazide Allergy Unknown Verified 02/07/18 20:22 [HYDROCHLOROTHIAZIDE] pregabalin [From LYRICA] Allergy Unknown Verified 02/07/18 20:22 [id number] Reductase Allergy Unknown Verified 02/07/18 20:22 Inhibitor [[id number] REDUCTASE INHIBITOR] Sulfa (Sulfonamide Allergy Unknown Verified 02/07/18 20:22 Antibiotics) [SULFA (SULFONAMIDE ANTIBIOTICS)] Review of Systems Constitutional Denies headache(s) ENT Ears, Nose, Mouth, and Throat: Denies dizziness and Denies headache(s) Cardiovascular Denies chest pain, Denies chest pain at rest, Reports leg edema, Denies palpitations, Reports dyspnea, Reports dyspnea on exertion and Reports orthopnea Respiratory Reports dyspnea, Reports dyspnea on exertion and Denies wheezing Gastrointestinal Gastrointestinal: Denies abdominal pain, Denies nausea and Denies vomiting Musculoskeletal Denies myalgias Integumentary/Breasts Denies lesions and Denies rash Neurologic Denies dizziness and Denies headache(s) Endocrine Denies palpitations Hematologic/Lymphatic Denies easy bruising Allergic/Immunologic Denies wheezing [facility] Medical History Anemia (Chronic) Anorexia (Chronic) Atherosclerosis (Chronic) Benign prostatic hyperplasia without lower urinary tract symptoms (Chronic) COPD (chronic obstructive pulmonary disease) (Chronic) Hypertensive heart disease with heart failure (Chronic) Major depressive disorder, single episode (Chronic) Morbid obesity due to excess calories (Chronic) Obstructive sleep apnea (Chronic) Orthostatic hypotension (Chronic) Osteoarthritis (Chronic) Paroxysmal atrial fibrillation (Chronic) Polyneuropathy, unspecified (Chronic) 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) Infection/inflammation due to internal orthopedic device/implant/graft (Resolved ) Non-ST elevated myocardial infarction (non-STEMI) (Resolved) Streptococcus, group b, as the cause of diseases classified elsewhere (Resolved) Surgical History Presence of coronary angioplasty implant and graft (Chronic) Social History household members: none lives independently: No housing: senior living Smoking Status: Never smoker alcohol intake: never Exam Initial Vital Signs Initial Vital Signs: Vital Signs Temperature 98.7 F 04/29/18 11:05 Pulse Rate 95 H 04/29/18 11:05 Respiratory Rate 20 04/29/18 11:05 Blood Pressure 139/92 H 04/29/18 11:05 Pulse Oximetry 97 04/29/18 11:05 Const General: cooperative, well developed, well groomed and No acute distress Orientation: alert, awake and oriented x3 HENMT Head: normal to inspection and normocephalic Resp Effort & Inspection: normal respiratory effort, no cough, not labored and tachypneic Auscultation: clear to auscultation bilaterally, no rales, no rhonchi and no wheezes Cardio Rate: regular rate Rhythm: regular rhythm Pulses: radial pulses present Skin Lesions: no lesions Rashes: no rashes Neuro General: alert, awake and oriented x3 Extrem General: edema (3+ pitting edema bilateral lower extremity) Psych Appearance: grossly normal and well kempt Course Orders Ordered: ED Orders 04/29/18 11:00 EKG-12 Lead Stat 04/29/18 11:05 XR chest 1V Stat 04/29/18 11:15 B Type Natriuretic Peptide Stat Basic Metabolic Panel Stat Complete Blood Count AUTO DIFF Stat Partial Thromboplastin Time Stat Prothrombin Time INR Stat Troponin I Stat Discontinued Medications Furosemide (Lasix) 60 mg IV NOW ONE Stop: 04/29/18 11:27 Last Admin: 04/29/18 11:47 Dose: 60 mg Vital Signs - 8 hr 04/29/18 11:05 04/29/18 11:39 Temperature 98.7 F Pulse Rate 95 H 95 H Respiratory Rate 20 20 Blood Pressure 139/92 H Blood Pressure [Left Arm] 127/81 Pulse Oximetry 97 97 MDM - Chest Pain Lab Data Attestation: I reviewed the patient's lab results. Result diagrams: 04/29/18 11:15 04/29/18 11:15 Lab Results 04/29/18 04/29/18 04/29/18 Range/Units 11:15 11:15 11:15 WBC 5.1 (4.5-11.0) X10^3/uL RBC 4.39 L (4.5-5.9) X10^6/uL Hgb 12.3 L (13.5-17.5) g/dL Hct 38.0 L (41-53) % MCV 86.6 (80-100) fL MCH 28.2 (26-34) PG MCHC 32.5 (30-36) % RDW 14.8 (11.6-14.8) % Plt Count 199 (150-400) X10^3/uL Neut % (Auto) 60.0 (50-75) % Lymph % (Auto) 28.4 (25-40) % [place] % (Auto) 7.6 (3-14) % Eos % (Auto) 3.3 (2-4) % Baso % (Auto) 0.7 (0-2) % Neut # (Auto) 3100 (4671-2801) /uL PT 14.8 H (10.1-12.7) SECONDS INR 1.4 H (0.9-1.3) APTT 36 D (26.4-36.2) SECONDS Sodium 144 (137-145) mmol/L Potassium 4.0 (3.4-5.1) mmol/L Chloride 104 (98-107) mmol/L Carbon Dioxide 30 (22-32) mmol/L BUN 13 (9-20) mg/dL Creatinine 0.80 (0.66-1.25) mg/dL Estimated GFR > 60.0 (>60) mL/min BUN/Creatinine Ratio 16.3 (6-22) Glucose 91 (80-110) mg/dL Calcium 9.4 (8.4-10.2) mg/dL Troponin I 0.023 (0.01-0.034) ng/mL B-Natriuretic Peptide 240.0 H (<100) Imaging Data Chest x-ray: Radiologist's impression: PROCEDURE: XR CHEST 1V INDICATIONS: Chest pain TECHNIQUE: One view of the chest was acquired. COMPARISON: [facility], CR, XR CHEST 1V, 02/07/2018, 22:42. [facility], CR, XR CHEST FOR PICC 1V, 02/08/2018, 17:08. FINDINGS: Surgical changes and devices: None. Lungs and pleura: There is blunting of both costophrenic angles. No pneumothorax is seen. No streaky opacities can be seen at the lung bases. Mediastinum: The cardiac contours are obscured, yet not frankly enlarged. The aorta demonstrates calcification and tortuosity. Bones and chest wall: No suspicious bony lesions. Age-appropriate bony degenerative changes are seen. Overlying soft tissues appear unremarkable. IMPRESSION: Small bilateral pleural effusions are seen. Overlying density is seen, which is most likely related to atelectasis. As clinically appropriate, a short-term followup chest series (with PA and lateral views) performed in deep inspiration is suggested for further evaluation. Dictated by: Guevara Fitzgerald M.D. on 04/29/2018 at 10:43 Approved by: Guevara Fitzgerald M.D. on 04/29/2018 at 10:45 ECG Data Attestation: I personally reviewed and interpreted this ECG as follows: Prior ECG tracings: not available for review Interpretation: Sinus rhythm Ventricular rate of 97 Normal axis Normal QRS Nonspecific ST T wave changes MDM Narrative Medical decision making narrative: Patient not in respiratory distress. Not hypoxic. Not having any chest pain. Does have bilateral lower extremity swelling. Nonspecific changes on the EKG no definitive ischemia. I do suspect that his symptoms that he presents with today his secondary to fluid overload most likely from CHF. Patient is not on Lasix. He was given Lasix here in the emergency department and did start urinating. He was able to ambulate. Will send home on 60 mg of Lasix. He does have a follow up with his primary doctor in 1 week. Will hold on further workup for now. He does not require admission to the hospital today. He was given return precautions. He expressed understanding and agreement with plan. Discharge Plan Departure Patient Disposition: Home Clinical Impression: Congestive heart failure, Edema extremities Instructions: DI for Heart Failure Activity Restrictions/Additional Instructions: Continue all of your medications to include the Lasix that I started you on today. Keep your appointment that you have scheduled next Wednesday with your primary doctor. Return to the emergency department for any new or worsening symptoms Prescriptions: New furosemide [Lasix] 20 mg tablet 60 mg PO DAILY Qty: 90 RF: 0 No Action Digox tablet 0.125 mg PO DAILY RF: 0 furosemide tablet 60 mg PO DAILY RF: 0 acetaminophen 325 mg Tablet 650 mg PO Q4H PRN (Reason: Pain) RF: 0 gabapentin 100 mg Capsule 100 mg PO QID RF: 0 rivaroxaban [Xarelto] 15 mg Tablet 15 mg PO QPM RF: 0
[2018-04-29 11:05] VITALS: BP 139/92; PULSE 95; RESP 20; TEMP 37.1; O2SAT 97; BMI 38.3
--- NOTE | 2018-04-29 11:05 | DI.RAD.S_ITS ---
PROCEDURE: XR CHEST 1V INDICATIONS: Chest pain TECHNIQUE: One view of the chest was acquired. COMPARISON: [facility], CR, XR CHEST 1V, 02/07/2018, 22:42. [facility], CR, XR CHEST FOR PICC 1V, 02/08/2018, 17:08. FINDINGS: Surgical changes and devices: None. Lungs and pleura: There is blunting of both costophrenic angles. No pneumothorax is seen. No streaky opacities can be seen at the lung bases. Mediastinum: The cardiac contours are obscured, yet not frankly enlarged. The aorta demonstrates calcification and tortuosity. Bones and chest wall: No suspicious bony lesions. Age-appropriate bony degenerative changes are seen. Overlying soft tissues appear unremarkable. IMPRESSION: Small bilateral pleural effusions are seen. Overlying density is seen, which is most likely related to atelectasis. As clinically appropriate, a short-term followup chest series (with PA and lateral views) performed in deep inspiration is suggested for further evaluation. Dictated by: Guevara Fitzgerald M.D. on 04/29/2018 at 10:43 Approved by: Guevara Fitzgerald M.D. on 04/29/2018 at 10:45
[2018-04-29 11:26] LABS: Add Manual Diff / Slide Review NO; Basophils Percent Auto 0.7 % (0-2); Eosinophils Percent Auto 3.3 % (2-4); Hemoglobin 12.3 g/dL (13.5-17.5); Lymphocytes Percent Auto 28.4 % (25-40); Mean Corpuscular HGB Conc 32.5 % (30-36); Mean Corpuscular Hemoglobin 28.2 PG (26-34); Mean Corpuscular Volume 86.6 fL (80-100); Monocytes Percent Auto 7.6 % (3-14); Neutrophils Absolute Auto 3100 /uL (3000-5900); Platelet Count 199 X10^3/uL (150-400); Red Blood Cell Count 4.39 X10^6/uL (4.5-5.9); Red Cell Distribution Width 14.8 % (11.6-14.8); White Blood Cell Count 5.1 X10^3/uL (4.5-11.0)
[2018-04-29 11:33] LABS: INR 1.4 (0.9-1.3); Prothrombin Time 14.8 SECONDS (10.1-12.7)
[2018-04-29 11:36] LABS: PTT Partial Thromboplastin Tim 36 SECONDS (26.4-36.2)
[2018-04-29 11:39] VITALS: BP 127/81; PULSE 95; RESP 20; O2SAT 97
[2018-04-29 11:46] LABS: BUN Creatinine Ratio 16.3 (6-22); Blood Urea Nitrogen 13 mg/dL (9-20); Calcium 9.4 mg/dL (8.4-10.2); Carbon Dioxide 30 mmol/L (22-32); Chloride 104 mmol/L (98-107); Estimated Glomerular Filt Rate > 60.0 mL/min (>60); Glucose 91 mg/dL (80-110); HEMOLYSIS < 15 (0-50); Sodium 144 mmol/L (137-145)
[2018-04-29] MEDS: FUROSEMIDE 100 MG/10 ML VIAL 60 MG IV (11:47)
[2018-04-29 11:58] LABS: Troponin I 0.023 ng/mL (0.01-0.034)
[2018-04-29 13:05] VITALS: BP 138/90; PULSE 90; RESP 20; TEMP 36.8; O2SAT 96
== END 2018-04-29 13:07 | disposition home or self-care (01) ==
PROVIDERS: Emergency Provider Emergency Medicine; PCP Internal Medicine
DX: I50.9 Heart failure, unspecified (principal); R60.0 Localized edema
CPT/HCPCS: 36591; 71045; 80048; 83880; 84484; 85025; 85610; 85730; 93005; 93010; 96374; 99284; 99285; J1940

== ENCOUNTER → 2020-11-07 08:58 | Outpatient (CLI) | payer MEDICARE, MEDICAID, SELFPAY ==
[2020-08-29 11:38] VITALS: BMI 32.8
[2020-11-07 20:00] LABS: Add Manual Diff / Slide Review NO; Basophils Absolute Auto 0 /uL (0-100); Basophils Percent Auto 0.4 % (0-2); Eosinophils Absolute Auto 300 /uL (0-450); Eosinophils Percent Auto 3.1 % (2-4); Hematocrit 43.1 % (41-53); Hemoglobin 14.2 g/dL (13.5-17.5); Lymphocytes Absolute Auto 1900 /uL (1100-4500); Lymphocytes Percent Auto 20.4 % (25-40); Mean Corpuscular Hemoglobin 29.9 PG (26-34); Mean Corpuscular Volume 90.3 fL (80-100); Monocytes Absolute Auto 500 /uL (0-900); Monocytes Percent Auto 5.8 % (3-14); Neutrophils Absolute Auto 6600 /uL (1500-7000); Neutrophils Percent Auto 70.3 % (50-75); Platelet Count 163 X10^3/uL (150-400); Red Blood Cell Count 4.77 X10^6/uL (4.5-5.9); Red Cell Distribution Width 15.2 % (11.6-14.8); White Blood Cell Count 9.4 X10^3/uL (4.5-11.0)
[2020-11-07 20:06] LABS: Alanine Aminotransferase 14 IU/L (<50); Albumin 3.8 g/dL (3.5-5.0); Albumin Globulin Ratio 1.1 (1.0-2.8); Alkaline Phosphatase 83 U/L (38-126); Aspartate Aminotransferase 20 IU/L (17-59); BUN Creatinine Ratio 20.7 (6-22); Bilirubin Total 0.3 mg/dL (0.2-1.3); Blood Urea Nitrogen 19 mg/dL (9-20); Calcium 9.2 mg/dL (8.4-10.2); Carbon Dioxide 32 mmol/L (22-32); Chloride 101 mmol/L (98-107); Cholesterol 148 mg/dL (140-199); Estimated Glomerular Filt Rate > 60.0 mL/min (>60); Globulin 3.6 g/dL (1.7-4.1); Glucose 98 mg/dL (80-110); HDL Cholesterol 32 mg/dL (40-60); HEMOLYSIS < 15 (0-50); LDL Cholesterol Calculated 89 mg/dL (<100); Potassium 4.3 mmol/L (3.4-5.1); Sodium 141 mmol/L (137-145); Total Protein 7.4 g/dL (6.3-8.2); Triglycerides 137 mg/dL (35-150); Uric Acid 8.8 mg/dL (3.5-8.5)
[2020-11-07 20:34] LABS: Thyroid Stimulating Hormone 4.62 uIU/mL (0.47-4.68)
[2020-11-07 20:41] LABS: Prostate Specific Antigen 10.6 ng/mL (0.10-4.00)
== END ==
PROVIDERS: Specialist; PCP Internal Medicine; Visit Provider Family Medicine
DX: M10.042 Idiopathic gout, left hand (principal); R55 Syncope and collapse; I48.0 Paroxysmal atrial fibrillation; I70.90 Unspecified atherosclerosis; N40.1 Benign prostatic hyperplasia with lower urinary tract symptoms; R42 Dizziness and giddiness; N13.8 Other obstructive and reflux uropathy
CPT/HCPCS: 80053; 80061; 84153; 84443; 84550; 85025